=== PATIENT | male | born 1955 | race Caucasian/White ===

== ENCOUNTER 2020-05-15 21:45 | Emergency (ER) | payer MEDICARE ==
[~2020-05-15] VITALS: Ht 170.2 cm; Wt 81.7 kg
[~2020-05-15 21:45] MED LIST: AZIT250 PO
[2020-05-15 22:50] LABS: Source, Urine Clean Catch
[2020-05-15 23:00] LABS: Appearance, Urine Bloody (Clear); Bilirubin, Urine Neg (Neg); Blood, Urine 5+ (Neg); Color, Urine Red (P-Yellow); Glucose Qualitative, Urine Neg (Neg); Ketones, Urine 1+ (Neg); Leukocyte Esterase, Urine 2+ (Neg); Nitrite, Urine Neg (Neg); Protein, Urine 4+ (Neg); Specific Gravity, Urine 1.015 (1.003-1.022); Urobilinogen, Urine NORM (Normal)
[2020-05-15 23:01] LABS: Red Blood Cells, Urine TNTC /hpf (0-2); Squamous Epithelial Cells Not Seen /hpf (Few)
[2020-05-15 23:02] LABS: Bacteria Few /hpf
[2020-05-15 23:08] LABS: BASOPHILS ABSOLUTE AUTO 0.08 K/mm3 (0.00-0.23); BASOPHILS PERCENT AUTO 1 % (0-2); EOSINOPHILS ABSOLUTE AUTO 0.45 K/mm3 (0.00-0.68); EOSINOPHILS PERCENT AUTO 4 % (0-6); Hemoglobin 11.3 g/dL (13.5-17.5); IMMATURE GRAN ABSOLUTE AUTO 0.06 K/mm3 (0.00-0.10); IMMATURE GRAN PERCENT AUTO 1 % (0-1); LYMPHOCYTES ABSOLUTE AUTO 1.51 K/mm3 (0.84-5.20); LYMPHOCYTES PERCENT AUTO 12 % (21-46); MONOCYTES ABSOLUTE AUTO 1.02 K/mm3 (0.16-1.47); MONOCYTES PERCENT AUTO 8 % (4-13); Mean Corpuscular HGB 33.1 pg (26.0-34.0); Mean Corpuscular HGB Conc 33.2 g/dL (31.5-36.5); Mean Corpuscular Volume 100 fL (80-100); Mean Platelet Volume 9.1 fL (9.1-12.4); NEUTROPHILS ABSOLUTE AUTO 9.19 K/mm3 (1.96-9.15); NEUTROPHILS PERCENT AUTO 75 % (41-73); Platelet Count 247 K/mm3 (150-400); RDW Coefficient Variation 13.4 % (11.7-14.2); RDW Standard Deviation 49.1 fL (35.1-46.3); Red Blood Cell Count 3.41 M/mm3 (4.30-5.90); White Blood Cell Count 12.31 K/mm3 (4.00-11.30)
[2020-05-15 23:43] LABS: Alanine Aminotransfer (ALT/SGP 17 U/L (12-78); Albumin, Blood 3.1 g/dL (3.4-5.0); Albumin/Globulin Ratio 0.8 (0.8-1.8); Alk Phos 60 U/L (50-136); Anion Gap 4 mmol/L (6-16); Aspartate Aminotrans (AST/SGOT 15 U/L (12-37); Bilirubin, Total 0.3 mg/dL (0.1-1.0); Blood Urea Nitrogen 13 mg/dL (8-24); Bun/Creatinine Ratio 11.8 (12.0-20.0); CO2, Blood 30 mmol/L (21-32); Calcium, Blood 8.5 mg/dL (8.5-10.1); Chloride, Blood 105 mmol/L (98-108); Globulin, Blood 3.9 g/dL (2.2-4.0); Glomerular Filtration Rate >60 (60-); Glucose, Blood 105 mg/dL (70-99); Potassium, Blood 3.6 mmol/L (3.5-5.5); Sodium, Blood 139 mmol/L (136-145)
[2020-05-16] MEDS ORDERED: Bactrim Ds Tab1 EACH PO (02:52)
[2020-05-16 03:15] LABS: U Amphetamine Screen Not Detected; U Barbituate Screen Not Detected; U Benzodiazapine Screen Not Detected; U Buprenorphine Screen Not Detected; U Cannabinoids Screen Not Detected; U Cocaine Screen Not Detected; U Methadone Screen Not Detected; U Methamphetamine Screen Not Detected; U Opiates Screen Not Detected; U Oxycodone Screen Not Detected; U Phencyclidine Screen Not Detected; U Propoxyphene Screen Not Detected
== END 2020-05-16 03:42 | disposition home or self-care (01) ==
LOC: ER 21:45
PROVIDERS: Emergency Medicine; Student in an Organized Health Care Education/Training Program
DX: N39.0 Urinary tract infection, site not specified (principal); R31.9 Hematuria, unspecified; F17.200 Nicotine dependence, unspecified, uncomplicated; Z88.0 Allergy status to penicillin
CPT/HCPCS: 80053; 81001; 84443; 85025; 87086; 87147; 93005; 93010; 96374; 99283; A9270; J2060; J7120

== ENCOUNTER 2021-06-14 16:23 | Inpatient (IN) | payer MEDICARE ==
[~2021-06-14] VITALS: Ht 172.7 cm; Wt 71.2 kg
[~2021-06-14 16:23] MED LIST changes: +Bactrim Ds Tab1 EACH PO
[2021-06-14 17:28] LABS: BASOPHILS ABSOLUTE AUTO 0.06 K/mm3 (0.00-0.23); BASOPHILS PERCENT AUTO 1 % (0-2); EOSINOPHILS ABSOLUTE AUTO 0.15 K/mm3 (0.00-0.68); EOSINOPHILS PERCENT AUTO 2 % (0-6); Hematocrit 37.6 % (37.0-53.0); Hemoglobin 12.2 g/dL (13.5-17.5); IMMATURE GRAN ABSOLUTE AUTO 0.01 K/mm3 (0.00-0.10); IMMATURE GRAN PERCENT AUTO 0 % (0-1); LYMPHOCYTES ABSOLUTE AUTO 1.59 K/mm3 (0.84-5.20); LYMPHOCYTES PERCENT AUTO 21 % (21-46); MONOCYTES PERCENT AUTO 9 % (4-13); Mean Corpuscular HGB 30.4 pg (26.0-34.0); Mean Corpuscular HGB Conc 32.4 g/dL (31.5-36.5); Mean Corpuscular Volume 94 fL (80-100); Mean Platelet Volume 10.1 fL (9.1-12.4); NEUTROPHILS ABSOLUTE AUTO 5.13 K/mm3 (1.96-9.15); NEUTROPHILS PERCENT AUTO 67 % (41-73); Platelet Count 238 K/mm3 (150-400); RDW Coefficient Variation 16.7 % (11.7-14.2); RDW Standard Deviation 56.9 fL (35.1-46.3); Red Blood Cell Count 4.01 M/mm3 (4.30-5.90); White Blood Cell Count 7.64 K/mm3 (4.00-11.30)
[2021-06-14 17:45] LABS: Albumin, Blood 3.1 g/dL (3.4-5.0); Albumin/Globulin Ratio 0.7 (0.8-1.8); Bilirubin, Total 0.5 mg/dL (0.1-1.0); Bun/Creatinine Ratio 15.4 (12.0-20.0); Calcium, Blood 9.1 mg/dL (8.5-10.1); Creatinine, Blood 1.23 mg/dL (0.60-1.20); Globulin, Blood 4.5 g/dL (2.2-4.0); Potassium, Blood 4.1 mmol/L (3.5-5.5); Total Protein, Blood 7.6 g/dL (6.4-8.2)
[2021-06-14 18:21] LABS: Influenza A, PCR NEGATIVE (NEGATIVE); Influenza B, PCR NEGATIVE (NEGATIVE); Resp Syncytial Virus, PCR NEGATIVE (NEGATIVE); SARS-Cov-2 (COVID-19) PCR, MMC NEGATIVE (NEGATIVE)
[2021-06-14 23:20] LABS: Source, Urine Clean Catch
[2021-06-14 23:22] LABS: Bilirubin, Urine Neg (Neg); Blood, Urine 2+ (Neg); Glucose Qualitative, Urine Neg (Neg); Ketones, Urine Neg (Neg); Leukocyte Esterase, Urine 3+ (Neg); Nitrite, Urine Pos (Neg); Protein, Urine 1+ (Neg); Specific Gravity, Urine 1.015 (1.003-1.022); Urobilinogen, Urine NORM (Normal)
[2021-06-14 23:37] LABS: Appearance, Urine Hazy (Clear); Color, Urine Yellow (P-Yellow)
[2021-06-14 23:39] LABS: Bacteria Many /hpf; Squamous Epithelial Cells Rare /hpf (Few); White Blood Cells, Urine 25-50 /hpf (0-5)
[2021-06-14 23:59] LABS: U Amphetamine Screen DETECTED; U Barbituate Screen Not Detected; U Benzodiazapine Screen Not Detected; U Buprenorphine Screen Not Detected; U Cannabinoids Screen Not Detected; U Cocaine Screen Not Detected; U Methadone Screen Not Detected; U Methamphetamine Screen DETECTED; U Opiates Screen Not Detected; U Oxycodone Screen Not Detected; U Phencyclidine Screen Not Detected; U Propoxyphene Screen Not Detected
[2021-06-15 01:15] LABS: BASOPHILS ABSOLUTE AUTO 0.05 K/mm3 (0.00-0.23); BASOPHILS PERCENT AUTO 1 % (0-2); EOSINOPHILS ABSOLUTE AUTO 0.21 K/mm3 (0.00-0.68); EOSINOPHILS PERCENT AUTO 3 % (0-6); Hematocrit 35.8 % (37.0-53.0); Hemoglobin 11.8 g/dL (13.5-17.5); IMMATURE GRAN ABSOLUTE AUTO 0.01 K/mm3 (0.00-0.10); IMMATURE GRAN PERCENT AUTO 0 % (0-1); LYMPHOCYTES ABSOLUTE AUTO 1.47 K/mm3 (0.84-5.20); LYMPHOCYTES PERCENT AUTO 22 % (21-46); MONOCYTES ABSOLUTE AUTO 0.68 K/mm3 (0.16-1.47); MONOCYTES PERCENT AUTO 10 % (4-13); Mean Corpuscular HGB 30.7 pg (26.0-34.0); Mean Corpuscular Volume 93 fL (80-100); Mean Platelet Volume 9.4 fL (9.1-12.4); NEUTROPHILS ABSOLUTE AUTO 4.19 K/mm3 (1.96-9.15); NEUTROPHILS PERCENT AUTO 63 % (41-73); Platelet Count 209 K/mm3 (150-400); RDW Coefficient Variation 16.6 % (11.7-14.2); RDW Standard Deviation 56.9 fL (35.1-46.3); Red Blood Cell Count 3.84 M/mm3 (4.30-5.90); White Blood Cell Count 6.61 K/mm3 (4.00-11.30)
[2021-06-15 01:34] LABS: Albumin, Blood 2.8 g/dL (3.4-5.0); Albumin/Globulin Ratio 0.7 (0.8-1.8); Bilirubin, Total 0.7 mg/dL (0.1-1.0); Bun/Creatinine Ratio 14.6 (12.0-20.0); Calcium, Blood 8.8 mg/dL (8.5-10.1); Creatinine, Blood 1.44 mg/dL (0.60-1.20); Globulin, Blood 4.3 g/dL (2.2-4.0); Potassium, Blood 3.7 mmol/L (3.5-5.5); Total Protein, Blood 7.1 g/dL (6.4-8.2)
--- NOTE | 2021-06-15 03:42 | NUR ---
0010: PT ARRIVED FROM ED. TRANSFERED TO ROOM 312 VIA W/C. AOX4. AMBULATES IND IN THE ROOM. ADVISE TO CALL FOR SBA TO DECREASE FALL RISK BECAUSE PT RECIEVED LASIX AT THE ER. URINAL AT BEDSIDE. VSS. REPORTS MILD SOB. PT DOES NOT APPEAR DISTRESS. TELE IN PLACE ON SINUS TACH 100. DENIES CHEST PAIN, NUMBNESS AND TINGLING SENSATION. REORIENT PT IN ROOM. CALL LIGHT WITHIN REACH.
--- NOTE | 2021-06-15 03:51 | NUR ---
0040: LUZ RN FROM ER CALLED STATING THAT CT CHEST WAS NEGATIVE BUT THE BLADDER APPEARS TO BE DISTENDED PER ER DOCTOR. ADVISE TO DO BLADDER SCAN TO EVAL PT. BLADDER SCANNED PT, 999ML. PT VOIDING IN THE URINAL WILL CONTINUE TO MONITOR. PT DENIES PAIN/ DISCOMFORT IN HIS BLADDER AT THIS TIME.
--- NOTE | 2021-06-15 03:54 | NUR ---
SHIFT SUMMARY NO ACUTE CHANGES SINCE PT CAME IN TO UNIT. PT HAS BEEN SLEEPING AND RESTING COMFORTABLE IN BED. DENIES CHEST PAIN AND REPORTS VERY MILD SOB. TELE IN PLACE: PT ON NSR. VSS. 1SBA FOR SAFETY. URINAL AT BEDSIDE. LOVENOX ADMINISTERED. CALL LIGHT WITHIN REACH. WILL CONTINUE TO MONITOR PT. AND WILL PROVIDE REPORT TO ONCOMING NURSE.
--- NOTE | 2021-06-15 12:29 | NUR ---
Echocardiogram using 0.50ml of Definity contrast performed.
--- NOTE | 2021-06-15 16:31 | NUR ---
SHIFT SUMMARY PATIENT DENIES PAIN, NAUSEA, AND SHORTNESS OF BREATH. PATIENT IS IND IN ROOM. PATIENT IS VOIDING LARGE AMOUNTS OF URINE. WE ARE DIURESSING PATIENT. POST VOID BLADDER SCAN SHOWED 2800. PATIENT ABDOMEN DISTENDED. PATIENT HAS HX OF ETOH. DR. WEEMS NOTIFIED. NO NEW ORDERS. PATIENT URINE CULTURE CAME BACK POSITIVE FOR STREP B. DR. WEEMS NOTIFIED. NO NEW ORDERS. PATIENT IS EATING AND DRINKING WELL. ECHO DONE, PENDING RESULTS. VULCANIZER MET WITH PATIENT TO EDUCATE PATIENT ABOUT CHANGE IN DIET DUE TO NEW DIAGNOSIS. PATIENT IS PLEASANT AND COOPERATIVE WITH CARE.
[2021-06-16 00:07] LABS: Source, Urine Foley catheter
[2021-06-16 00:23] LABS: Bilirubin, Urine Neg (Neg); Blood, Urine Neg (Neg); Glucose Qualitative, Urine Neg (Neg); Ketones, Urine Neg (Neg); Leukocyte Esterase, Urine Neg (Neg); Nitrite, Urine Neg (Neg); Protein, Urine Neg (Neg); Specific Gravity, Urine 1.005 (1.003-1.022); Urobilinogen, Urine NORM (Normal)
[2021-06-16 00:27] LABS: Appearance, Urine Clear (Clear); Color, Urine No Color (P-Yellow)
--- NOTE | 2021-06-16 04:17 | NUR ---
SHIFT SUMMARY ADMITTED FOR CHF (NEW DX). FULL CODE. PLAN IS TO DC HOME WHEN STABLE FOR DC. WE ARE DIURESING HIM. QUIROS CATHETER NOW IN PLACE FOR RETENTION. Q4 CIWAS ARE SO FAR ZERO SCORE. ON PO ANTIB RX FOR STREP B IN URINE. TELEMETRY: TACHY @ 115 BPM.
[2021-06-16 04:48] LABS: BASOPHILS ABSOLUTE AUTO 0.05 K/mm3 (0.00-0.23); BASOPHILS PERCENT AUTO 1 % (0-2); EOSINOPHILS ABSOLUTE AUTO 0.53 K/mm3 (0.00-0.68); EOSINOPHILS PERCENT AUTO 6 % (0-6); Hematocrit 40.8 % (37.0-53.0); Hemoglobin 13.6 g/dL (13.5-17.5); IMMATURE GRAN ABSOLUTE AUTO 0.02 K/mm3 (0.00-0.10); IMMATURE GRAN PERCENT AUTO 0 % (0-1); LYMPHOCYTES ABSOLUTE AUTO 1.69 K/mm3 (0.84-5.20); LYMPHOCYTES PERCENT AUTO 20 % (21-46); MONOCYTES ABSOLUTE AUTO 0.74 K/mm3 (0.16-1.47); MONOCYTES PERCENT AUTO 9 % (4-13); Mean Corpuscular HGB 30.6 pg (26.0-34.0); Mean Corpuscular HGB Conc 33.3 g/dL (31.5-36.5); Mean Corpuscular Volume 92 fL (80-100); Mean Platelet Volume 9.6 fL (9.1-12.4); NEUTROPHILS ABSOLUTE AUTO 5.49 K/mm3 (1.96-9.15); NEUTROPHILS PERCENT AUTO 65 % (41-73); Platelet Count 248 K/mm3 (150-400); RDW Coefficient Variation 16.5 % (11.7-14.2); RDW Standard Deviation 55.9 fL (35.1-46.3); Red Blood Cell Count 4.45 M/mm3 (4.30-5.90); White Blood Cell Count 8.52 K/mm3 (4.00-11.30)
[2021-06-16 05:31] LABS: Albumin, Blood 2.8 g/dL (3.4-5.0); Anion Gap 6 mmol/L (6-16); Blood Urea Nitrogen 30 mg/dL (8-24); Bun/Creatinine Ratio 18.6 (12.0-20.0); CO2, Blood 32 mmol/L (21-32); Chloride, Blood 101 mmol/L (98-108); Creatinine, Blood 1.61 mg/dL (0.60-1.20); Glomerular Filtration Rate 43 (60-); Glucose, Blood 105 mg/dL (70-99); Phosphorus, Blood 3.8 mg/dL (2.5-4.9); Potassium, Blood 3.7 mmol/L (3.5-5.5); Sodium, Blood 139 mmol/L (136-145)
[2021-06-16] MEDS ORDERED: ASPI81CH PO (16:05)
[2021-06-16] MEDS ORDERED: CIPR250 PO (16:06)
[2021-06-16] MEDS ORDERED: METO25ER PO (16:06)
[2021-06-16] MEDS ORDERED: Hair, Skin & N1 EACH PO (16:06)
[2021-06-16] MEDS ORDERED: TAMS.4ER PO (16:07)
[2021-06-16] MEDS ORDERED: FURO40 PO (16:07)
--- NOTE | 2021-06-16 19:26 | NUR ---
DISCHARGE SUMMARY: LATE ENTRY: 1645 PATIENT DENIED PAIN OR DISCOMFORT THROUGHOUT THE SHIFT. FOUND THAT THE QUIROS CATHETER WAS NOT IN PLACE THIS MORNING. PATIENT ABLE TO VOID SMALL AMOUNTS DURING THE MORNING. PATIENT REFUSED PLACEMENT OF QUIROS, LEARNING ABOUT STRAIGHT CATHING OR TO HAVE A ONE TIME STRAIGHT CATH PLACED. DR. GUAJARDO AWARE. DR. PANG ROUNDED ON PATIENT. ORDERS TO HAVE THE PATIENT FOLLOW-UP WITH CARDIOLOGY. PATIENT INDEPENDENT IN THE ROOM AND STEADY ON HIS FEET. DISCHARGE INSTRUCTIONS AND EDUCATION PROVIDED TO THE PATIENT. EMPHASIS PLACED ON LIFE STYLE CHANGES AND ADHERENCE TO MEDICATIONS. PATIENT VERBALIZED UNDERSTANDING. PROVIDED WITH COMMUNITY RESOURCES AND LIST OF PROVIDERS. PATIENT WALKED OUT OF THE HOSPITAL WITH RN (REFUSED WHEELCHAIR). PATIENT STABLE AT TIME OF DISCHARGE.
== END 2021-06-16 16:58 | disposition home or self-care (01) | DRG 291 ==
LOC: ER 16:23 → MEDS 22:14
PROVIDERS: Internal Medicine; Physician Assistant; ADMIT Internal Medicine
DX: I11.0 Hypertensive heart disease with heart failure (principal); I50.21 Acute systolic (congestive) heart failure; N17.9 Acute kidney failure, unspecified; Z88.0 Allergy status to penicillin; Z20.822 Contact with and (suspected) exposure to COVID-19; F17.200 Nicotine dependence, unspecified, uncomplicated; F10.20 Alcohol dependence, uncomplicated; N30.90 Cystitis, unspecified without hematuria; Z91.14 Patient's other noncompliance with medication regimen
CPT/HCPCS: 0241U; 36415; 71045; 71260; 76770; 80053; 80069; 81001; 81003; 82550; 83880; 84484; 85025; 87086; 87147; 93005; 93010; 96374; 99285-25; A9270; C8929; J1650; J1940; Q9957; Q9967

== ENCOUNTER 2021-09-03 17:38 | Inpatient (IN) | payer MEDICARE ==
[~2021-09-03] VITALS: Ht 170.2 cm; Wt 75.5 kg
[~2021-09-03 17:38] MED LIST changes: +ASPI81CH PO; +CIPR250 PO; +FURO40 PO; +Hair, Skin & N1 EACH PO; +METO25ER PO; +TAMS.4ER PO
[2021-09-03 18:05] LABS: BASOPHILS ABSOLUTE AUTO 0.05 K/mm3 (0.00-0.23); BASOPHILS PERCENT AUTO 0 % (0-2); EOSINOPHILS ABSOLUTE AUTO 0.01 K/mm3 (0.00-0.68); EOSINOPHILS PERCENT AUTO 0 % (0-6); Hematocrit 36.8 % (37.0-53.0); Hemoglobin 11.9 g/dL (13.5-17.5); IMMATURE GRAN ABSOLUTE AUTO 0.17 K/mm3 (0.00-0.10); IMMATURE GRAN PERCENT AUTO 1 % (0-1); LYMPHOCYTES ABSOLUTE AUTO 0.54 K/mm3 (0.84-5.20); LYMPHOCYTES PERCENT AUTO 3 % (21-46); MONOCYTES ABSOLUTE AUTO 1.24 K/mm3 (0.16-1.47); MONOCYTES PERCENT AUTO 6 % (4-13); Mean Corpuscular HGB 29.5 pg (26.0-34.0); Mean Corpuscular HGB Conc 32.3 g/dL (31.5-36.5); Mean Corpuscular Volume 91 fL (80-100); Mean Platelet Volume 9.9 fL (9.1-12.4); NEUTROPHILS ABSOLUTE AUTO 19.04 K/mm3 (1.96-9.15); NEUTROPHILS PERCENT AUTO 91 % (41-73); Platelet Count 201 K/mm3 (150-400); RDW Coefficient Variation 15.8 % (11.7-14.2); Red Blood Cell Count 4.04 M/mm3 (4.30-5.90); White Blood Cell Count 21.05 K/mm3 (4.00-11.30)
[2021-09-03 18:16] LABS: Source, Urine Clean Catch
[2021-09-03 18:26] LABS: Appearance, Urine Hazy (Clear); Bilirubin, Urine Neg (Neg); Blood, Urine 2+ (Neg); Color, Urine Yellow (P-Yellow); Glucose Qualitative, Urine Neg (Neg); Ketones, Urine Neg (Neg); Leukocyte Esterase, Urine 3+ (Neg); Nitrite, Urine Neg (Neg); Protein, Urine 2+ (Neg); Urobilinogen, Urine NORM (Normal)
[2021-09-03 18:37] LABS: Granular Casts 0-2 /lpf (0)
[2021-09-03 18:38] LABS: Bacteria Many /hpf; Red Blood Cells, Urine 0-2 /hpf (0-2); Squamous Epithelial Cells Rare /hpf (Few)
[2021-09-03 18:43] LABS: U Amphetamine Screen DETECTED; U Barbituate Screen Not Detected; U Benzodiazapine Screen Not Detected; U Buprenorphine Screen Not Detected; U Cannabinoids Screen Not Detected; U Cocaine Screen Not Detected; U Methadone Screen Not Detected; U Methamphetamine Screen DETECTED; U Opiates Screen Not Detected; U Oxycodone Screen Not Detected; U Phencyclidine Screen Not Detected; U Propoxyphene Screen Not Detected
[2021-09-03 18:57] LABS: Albumin, Blood 2.7 g/dL (3.4-5.0); Albumin/Globulin Ratio 0.6 (0.8-1.8); Bilirubin, Total 1.5 mg/dL (0.1-1.0); Calcium, Blood 8.6 mg/dL (8.5-10.1); Creatinine, Blood 1.25 mg/dL (0.60-1.20); Globulin, Blood 4.3 g/dL (2.2-4.0); Potassium, Blood 4.1 mmol/L (3.5-5.5)
[2021-09-04 05:36] LABS: Hematocrit 34.5 % (37.0-53.0); Hemoglobin 10.8 g/dL (13.5-17.5); Mean Corpuscular HGB 29.3 pg (26.0-34.0); Mean Corpuscular HGB Conc 31.3 g/dL (31.5-36.5); Mean Corpuscular Volume 94 fL (80-100); Mean Platelet Volume 9.9 fL (9.1-12.4); Platelet Count 169 K/mm3 (150-400); RDW Coefficient Variation 15.9 % (11.7-14.2); RDW Standard Deviation 54.2 fL (35.1-46.3); Red Blood Cell Count 3.69 M/mm3 (4.30-5.90); White Blood Cell Count 15.41 K/mm3 (4.00-11.30)
--- NOTE | 2021-09-04 05:45 | NUR ---
PATIENT REMAINED IN BED OVERNIGHT. INDEPENDENT IN ROOM TO BATHROOM. NO COMPLAINTS OF PAIN OR DISCOMFORT. OOB TO VOID IN THE BATHROOM. ATE GOOD LATE DINNER UPON ARRIVING ON THE FLOOR.
[2021-09-04 06:15] LABS: Bun/Creatinine Ratio 19.5 (12.0-20.0); Calcium, Blood 8.2 mg/dL (8.5-10.1); Creatinine, Blood 1.33 mg/dL (0.60-1.20); Magnesium, Blood 1.8 mg/dL (1.6-2.4); Potassium, Blood 3.9 mmol/L (3.5-5.5)
--- NOTE | 2021-09-04 12:04 | NUR ---
veterinary technology instructor called and stated patient had 6 second run of v tack. Checked on patietn- alert, orientated, denies chest pain, denies SOB. states " feel fine". call light in reach, tele in place, room door open.
--- NOTE | 2021-09-04 17:38 | NUR ---
PATIENT IS REPORTING NO CONCERNS- BREATHING IS BETTER AND HE STATES HE FEELS BACK TO NORMAL. HE HAS NO PAIN. THE DIUREICS HE TOOK THIS SHIFT ARE WORKING WELL AND HE IS USING THE BATHROM INDEPEDETLY. PATIENT HAD URINAL AT BEDSIDE AND HAT IN TOILET NOW FOR I&O.
--- NOTE | 2021-09-04 22:33 | NUR ---
RN TO RN PATIENT TRANSFER. REPORT TAKEN FROM OLGA STEELE.
--- NOTE | 2021-09-05 04:29 | NUR ---
SHIFT SUMMARY PATIENT HAD NO ACUTE CHANGES OBSERVED. AXOX 3 AND INDEPENDENT IN THE ROOM. PIV REMAINS INTACT. VSS/AFEBRILE. DENIES PAIN, SOB, AND N/V. USES URINAL AT BEDSIDE. TELE MONITOR ST 110. CALL LIGHT IN REACH. BED IN LOWEST POSITION. WILL CONTINUE TO MONITOR UNTIL DAY SHIFT NURSE ASSUMES CARE.
[2021-09-05 05:29] LABS: BASOPHILS ABSOLUTE AUTO 0.07 K/mm3 (0.00-0.23); BASOPHILS PERCENT AUTO 1 % (0-2); EOSINOPHILS ABSOLUTE AUTO 0.43 K/mm3 (0.00-0.68); EOSINOPHILS PERCENT AUTO 5 % (0-6); Hematocrit 35.6 % (37.0-53.0); Hemoglobin 11.3 g/dL (13.5-17.5); IMMATURE GRAN ABSOLUTE AUTO 0.02 K/mm3 (0.00-0.10); IMMATURE GRAN PERCENT AUTO 0 % (0-1); LYMPHOCYTES ABSOLUTE AUTO 2.04 K/mm3 (0.84-5.20); LYMPHOCYTES PERCENT AUTO 22 % (21-46); MONOCYTES ABSOLUTE AUTO 0.88 K/mm3 (0.16-1.47); MONOCYTES PERCENT AUTO 10 % (4-13); Mean Corpuscular HGB 29.6 pg (26.0-34.0); Mean Corpuscular HGB Conc 31.7 g/dL (31.5-36.5); Mean Corpuscular Volume 93 fL (80-100); Mean Platelet Volume 9.8 fL (9.1-12.4); NEUTROPHILS ABSOLUTE AUTO 5.82 K/mm3 (1.96-9.15); NEUTROPHILS PERCENT AUTO 63 % (41-73); Platelet Count 178 K/mm3 (150-400); RDW Coefficient Variation 15.8 % (11.7-14.2); Red Blood Cell Count 3.82 M/mm3 (4.30-5.90); White Blood Cell Count 9.26 K/mm3 (4.00-11.30)
[2021-09-05 07:20] LABS: Albumin, Blood 2.2 g/dL (3.4-5.0); Anion Gap 8 mmol/L (6-16); Blood Urea Nitrogen 31 mg/dL (8-24); Bun/Creatinine Ratio 20.7 (12.0-20.0); CO2, Blood 25 mmol/L (21-32); Calcium, Blood 8.3 mg/dL (8.5-10.1); Chloride, Blood 108 mmol/L (98-108); Glomerular Filtration Rate 50 (60-); Glucose, Blood 103 mg/dL (70-99); Phosphorus, Blood 3.6 mg/dL (2.5-4.9); Potassium, Blood 3.9 mmol/L (3.5-5.5); Sodium, Blood 141 mmol/L (136-145)
[2021-09-05] MEDS ORDERED: ALDACTONE25 MG PO (13:08)
[2021-09-05] MEDS ORDERED: METO25ER PO (13:08)
[2021-09-05] MEDS ORDERED: FURO40 PO (13:09)
[2021-09-05] MEDS ORDERED: TAMS.4ER PO (13:09)
[2021-09-05] MEDS ORDERED: B-1100 M1 PO (13:09)
--- NOTE | 2021-09-05 14:29 | NUR ---
DISCHARGE SUMMARY PT DC AT APPROX 1350 TO HOME WITH FAMILY MEMBER. PT AxOx4. PLEASANT AND COOPERATIVE WITH CARE. PT GIVEN DC INSTRUCTIONS INCLUDING FOLLOW UP INSTRUCTIONS TO ESTABLISH CARE WITH NEW PCP, DC MEDICATION LIST, AND PATIENT EDUCATION. PT VERBALIZES UNDERSTANDING. DENIES ANY FURTHER QUESTIONS. PT SAFELY ESCORTED OUT WITH FAMILY AND LEASING SPECIALIST.
== END 2021-09-05 14:44 | disposition home or self-care (01) | DRG 871 ==
LOC: ER 17:38 → MEDS 21:09
PROVIDERS: Internal Medicine; Physician Assistant; ADMIT Internal Medicine
PROC: 3E03329 Introduction of Other Anti-infective into Peripheral Vein, Percutaneous Approach (ICD-10-PCS; principal; 2021-09-03)
PROC: HZ2ZZZZ Detoxification Services for Substance Abuse Treatment (ICD-10-PCS; 2021-09-03)
DX: A41.9 Sepsis, unspecified organism (principal); I50.23 Acute on chronic systolic (congestive) heart failure; I13.0 Hypertensive heart and chronic kidney disease with heart failure and stage 1 through stage 4 chronic kidney disease, or unspecified chronic kidney disease; E87.2 Acidosis; N17.9 Acute kidney failure, unspecified; N39.0 Urinary tract infection, site not specified; I42.0 Dilated cardiomyopathy; I42.7 Cardiomyopathy due to drug and external agent; I42.6 Alcoholic cardiomyopathy; R65.20 Severe sepsis without septic shock; N40.0 Benign prostatic hyperplasia without lower urinary tract symptoms; N18.30 Chronic kidney disease, stage 3 unspecified; F15.10 Other stimulant abuse, uncomplicated; F17.210 Nicotine dependence, cigarettes, uncomplicated; F10.20 Alcohol dependence, uncomplicated; Z71.41 Alcohol abuse counseling and surveillance of alcoholic; Z71.51 Drug abuse counseling and surveillance of drug abuser; Z88.0 Allergy status to penicillin; Z79.82 Long term (current) use of aspirin; Z79.899 Other long term (current) drug therapy
CPT/HCPCS: 36415; 71046; 80048; 80053; 80069; 81001; 83605; 83690; 83735; 83880; 84484; 85025; 85027; 87040; 87086; 93005; 93010; 96374; 99285-25; A9270; J0696; J1940; J7030

== ENCOUNTER 2022-01-17 14:13 | Inpatient (IN) | payer MEDICARE ==
[~2022-01-17] VITALS: Ht 167.6 cm; Wt 65.0 kg
[~2022-01-17 14:13] MED LIST changes: +ALDACTONE25 MG PO; +B-1100 M1 PO
[2022-01-17 15:27] LABS: BASOPHILS ABSOLUTE AUTO 0.01 K/mm3 (0.00-0.23); BASOPHILS PERCENT AUTO 0 % (0-2); EOSINOPHILS ABSOLUTE AUTO 0.03 K/mm3 (0.00-0.68); EOSINOPHILS PERCENT AUTO 0 % (0-6); Hematocrit 36.6 % (37.0-53.0); IMMATURE GRAN ABSOLUTE AUTO 0.05 K/mm3 (0.00-0.10); IMMATURE GRAN PERCENT AUTO 0 % (0-1); LYMPHOCYTES ABSOLUTE AUTO 0.72 K/mm3 (0.84-5.20); LYMPHOCYTES PERCENT AUTO 6 % (21-46); MONOCYTES PERCENT AUTO 5 % (4-13); Mean Corpuscular HGB 28.2 pg (26.0-34.0); Mean Corpuscular HGB Conc 32.8 g/dL (31.5-36.5); Mean Corpuscular Volume 86 fL (80-100); Mean Platelet Volume 9.7 fL (9.1-12.4); NEUTROPHILS PERCENT AUTO 88 % (41-73); NRBC ABSOLUTE 0.02 K/mm3 (0.00-0.02); NRBC Auto 0.2 /100 WBC (0.0-0.2); Platelet Count 149 K/mm3 (150-400); RDW Coefficient Variation 18.6 % (11.7-14.2); RDW Standard Deviation 55.7 fL (35.1-46.3); Red Blood Cell Count 4.25 M/mm3 (4.30-5.90); White Blood Cell Count 12.11 K/mm3 (4.00-11.30)
[2022-01-17 15:48] LABS: Albumin, Blood 2.1 g/dL (3.4-5.0); Albumin/Globulin Ratio 0.5 (0.8-1.8); Bilirubin, Total 0.9 mg/dL (0.1-1.0); Bun/Creatinine Ratio 22.1 (12.0-20.0); Calcium, Blood 8.1 mg/dL (8.5-10.1); Creatinine, Blood 4.93 mg/dL (0.60-1.20); Globulin, Blood 4.5 g/dL (2.2-4.0); Potassium, Blood 3.9 mmol/L (3.5-5.5); Total Protein, Blood 6.6 g/dL (6.4-8.2)
[2022-01-17 17:39] LABS: International Normalized Ratio 1.28; Prothrombin Time Results 13.2 Sec (9.7-11.5)
[2022-01-17 17:51] LABS: Source, Urine Clean Catch
[2022-01-17 17:54] LABS: Appearance, Urine Cloudy (Clear); Bilirubin, Urine Neg (Neg); Blood, Urine 5+ (Neg); Color, Urine Yellow (P-Yellow); Glucose Qualitative, Urine Neg (Neg); Ketones, Urine Neg (Neg); Leukocyte Esterase, Urine 3+ (Neg); Nitrite, Urine Pos (Neg); Protein, Urine 2+ (Neg); Urobilinogen, Urine NORM (Normal)
[2022-01-17 18:07] LABS: Bacteria Many /hpf; Squamous Epithelial Cells Few /hpf (Few); White Blood Cells, Urine 50-100 /hpf (0-5)
[2022-01-17 18:08] LABS: Renal Epithelial Few /hpf (0-Rare); Transitional Epithelial Cells Rare /hpf (0-Rare)
[2022-01-17 20:07] LABS: U Amphetamine Screen DETECTED; U Barbituate Screen Not Detected; U Benzodiazapine Screen Not Detected; U Buprenorphine Screen Not Detected; U Cannabinoids Screen Not Detected; U Cocaine Screen Not Detected; U Methadone Screen Not Detected; U Methamphetamine Screen DETECTED; U Opiates Screen Not Detected; U Oxycodone Screen Not Detected; U Phencyclidine Screen Not Detected; U Propoxyphene Screen Not Detected
--- NOTE | 2022-01-17 20:42 | NUR ---
ADMIT NOTE 66 YR OLD MALE ADMITTED TO FLOOR FROM THE ED WITH DX OF CHF AND RENAL FAILURE/ANJEL. ED RN REPORTED PT CAME IN WITH FLUID OVERLOAD, SCROTAL SWELLING, AND PLACED A QUIROS CATH. 2600 CC RETURNS. UP TO FLOOR. RADIOLOGY MEETS PT IN ROOM FOR SCAN OF UBIC AREA AND "KIDNEYS". ALERT AND ORIENTED. VOICED DIFFICULTY TO REPOSITION SELF. CALL LIGHT IN REACH.
--- NOTE | 2022-01-17 22:52 | NUR ---
DRYING MACHINE OPERATOR PACKAGE YARNS VOICED NO NOTED CHANGES SINCE PREVIOUS SCANS. SEE CHART HX FOR DETAILS
--- NOTE | 2022-01-18 04:10 | NUR ---
SEWING MACHINE OPERATOR SEMIAUTOMATIC SUMMARY ADMITTED TO FLOOR EARLIER IN THE SHIFT WITH FLUID OVERLOAD DUE TO CHF, ANJEL AND APPARENT KIDNEY FAILURE. SWELLING IN SCROTUM AND BLE, QUIROS WAS PLACED IN THE ED, AND ED RN REPORTED 2600 ML IMMEDIATELY DRAINED. HAS BEEN DROWSY AND SNORING THROUGH OUT SHIFT, DIFFICULT TO KEEP AWAKE TO OBTAIN ADMIT INFO FOR ADMISSION. (WILL ASK AM RN TO F/U WITH INFO NOT OBTAINED ON THIS SHIFT). RECEIVED ALBUMIN ON ARRIVAL AND IVF OF NS AT 75 ML/HR. MED TELE S TACH. LUNGS SOMEWHAT DIMINISHED. RADIOLOGY SCANS OF SCROTUM AND KIDNEYS DONE. EQUITY RESEARCH ASSOCIATE VOICED NO NOTED CHANGES COMPARED TO THOSE OF PREVIOUS SCANS. ORIENTED TO USE OF CALL LIGHT. CALL LIGHT IN REACH. RAILS UP X 3. WILL CONTINUE TO MONITOR
[2022-01-18 06:22] LABS: BASOPHILS ABSOLUTE AUTO 0.01 K/mm3 (0.00-0.23); BASOPHILS PERCENT AUTO 0 % (0-2); EOSINOPHILS ABSOLUTE AUTO 0.08 K/mm3 (0.00-0.68); EOSINOPHILS PERCENT AUTO 1 % (0-6); Hematocrit 35.8 % (37.0-53.0); Hemoglobin 11.4 g/dL (13.5-17.5); IMMATURE GRAN ABSOLUTE AUTO 0.04 K/mm3 (0.00-0.10); IMMATURE GRAN PERCENT AUTO 0 % (0-1); LYMPHOCYTES PERCENT AUTO 8 % (21-46); MONOCYTES ABSOLUTE AUTO 0.56 K/mm3 (0.16-1.47); MONOCYTES PERCENT AUTO 6 % (4-13); Mean Corpuscular HGB 27.6 pg (26.0-34.0); Mean Corpuscular HGB Conc 31.8 g/dL (31.5-36.5); Mean Corpuscular Volume 87 fL (80-100); Mean Platelet Volume 10.4 fL (9.1-12.4); NEUTROPHILS ABSOLUTE AUTO 8.38 K/mm3 (1.96-9.15); NEUTROPHILS PERCENT AUTO 85 % (41-73); Platelet Count 144 K/mm3 (150-400); RDW Coefficient Variation 18.7 % (11.7-14.2); RDW Standard Deviation 56.5 fL (35.1-46.3); Red Blood Cell Count 4.13 M/mm3 (4.30-5.90); White Blood Cell Count 9.87 K/mm3 (4.00-11.30)
[2022-01-18 06:42] LABS: Albumin, Blood 2.1 g/dL (3.4-5.0); Albumin/Globulin Ratio 0.5 (0.8-1.8); Bilirubin, Total 0.9 mg/dL (0.1-1.0); Bun/Creatinine Ratio 23.2 (12.0-20.0); Calcium, Blood 8.4 mg/dL (8.5-10.1); Creatinine, Blood 4.65 mg/dL (0.60-1.20); Globulin, Blood 3.9 g/dL (2.2-4.0); Potassium, Blood 3.6 mmol/L (3.5-5.5)
--- NOTE | 2022-01-18 18:16 | NUR ---
SHIFT SUMMARY PT A&O X 4. VSS. SHAREPOINT APPLICATION ARCHITECT CALLED WITH A FEW EPISODES OF ST WITH RATE IN THE 190's-200's THAT LASTED FOR 1-2 SECS. 1 EPISODE OF AN 8 BEAT RUN OF V-TACH. PT DENIES CHEST PAIN, LIGHTHEADEDNESS, DIZZINESS, SOB OR NAUSEA. PT DENIES FEELING ANYTHING DIFFERENT OR FEELING BAD AT ALL. PT HAS SLEPT COMFORTABLY OFF AND ON THROUGHOUT SHIFT, RESP EVEN & UNLABORED. SCROTAL EDEMA REMAINS. F/C INTACT & PATENT, DRAINING CLEAR YELLOW URINE. ORDERED LASIX 60 MG IV BID, IT'S WORKING WELL. IS PLEASANT & COOPERATIVE WITH ALL CARE.
--- NOTE | 2022-01-19 03:12 | NUR ---
RESIN FILTERER SUMMARY CONTINUES TO APPEAR TO SLEEP CONTINUOUSLY, WAKING UP FOR ASSESSMENTS AND GOING BACK TO SLEEP QUICKLY. SCROTAL SWELLING REMAINS, DIURESING CONTINUES, RECEIVED 6 MG LASIX IV AT HS, OUTPUT IN QUIROS WAS OVER 2700 CC'S. LIGHT YELLOW AND CLEAR. MED TELE CONTINUES, OCCASIONAL RUN OF V TACH BUT ASYMPTOMATIC. CALL LIGHT IN REACH. WILL CONTINUE TO MONITOR.
[2022-01-19 06:00] LABS: BASOPHILS ABSOLUTE AUTO 0.02 K/mm3 (0.00-0.23); BASOPHILS PERCENT AUTO 0 % (0-2); EOSINOPHILS ABSOLUTE AUTO 0.04 K/mm3 (0.00-0.68); EOSINOPHILS PERCENT AUTO 0 % (0-6); Hematocrit 41.3 % (37.0-53.0); IMMATURE GRAN ABSOLUTE AUTO 0.05 K/mm3 (0.00-0.10); IMMATURE GRAN PERCENT AUTO 0 % (0-1); LYMPHOCYTES ABSOLUTE AUTO 0.72 K/mm3 (0.84-5.20); LYMPHOCYTES PERCENT AUTO 6 % (21-46); MONOCYTES ABSOLUTE AUTO 0.72 K/mm3 (0.16-1.47); MONOCYTES PERCENT AUTO 6 % (4-13); Mean Corpuscular HGB 27.3 pg (26.0-34.0); Mean Corpuscular HGB Conc 31.5 g/dL (31.5-36.5); Mean Corpuscular Volume 87 fL (80-100); Mean Platelet Volume 9.9 fL (9.1-12.4); NEUTROPHILS ABSOLUTE AUTO 10.36 K/mm3 (1.96-9.15); NEUTROPHILS PERCENT AUTO 87 % (41-73); Platelet Count 166 K/mm3 (150-400); RDW Coefficient Variation 19.2 % (11.7-14.2); RDW Standard Deviation 56.1 fL (35.1-46.3); Red Blood Cell Count 4.77 M/mm3 (4.30-5.90); White Blood Cell Count 11.91 K/mm3 (4.00-11.30)
[2022-01-19 06:25] LABS: Albumin, Blood 2.2 g/dL (3.4-5.0); Albumin/Globulin Ratio 0.5 (0.8-1.8); Bilirubin, Total 1.2 mg/dL (0.1-1.0); Bun/Creatinine Ratio 23.7 (12.0-20.0); Calcium, Blood 7.9 mg/dL (8.5-10.1); Creatinine, Blood 4.55 mg/dL (0.60-1.20); Globulin, Blood 4.3 g/dL (2.2-4.0); Potassium, Blood 3.7 mmol/L (3.5-5.5); Total Protein, Blood 6.5 g/dL (6.4-8.2)
[2022-01-19 14:09] LABS: Bun/Creatinine Ratio 24.3 (12.0-20.0); Calcium, Blood 7.6 mg/dL (8.5-10.1); Creatinine, Blood 4.32 mg/dL (0.60-1.20); Potassium, Blood 3.5 mmol/L (3.5-5.5)
--- NOTE | 2022-01-19 19:42 | NUR ---
SHIFT SUMMARY PTN WITH CHF, ANJEL, PLEURAL EFFUSION, FLUID OVERLOAD, INCLUDING EXTENSIVE SCROTAL SWELLING. QUIROS PLACED IN ER FOR URINARY RETENTION. URINE CLEAR YELLOW IN QUIROS BAG, GRAVITY DRAIN. C/O L SHOULDER DISCOMFORT. TYLENOL AND WARM BLANKET GIVEN WITH GOOD RESULT. PTN DID HAVE REPORTED VTACH LONG RUNS LAST SHIFT AND AGAIN THIS SHIFT VTACH 5-RUN REPORTED, RESOLVED EACH EPISODE. DR JAY MADE AWARE. PTN HAD NO UNTOWARD SYMPTOMS DURING THESE EPISODES. CONTINUE TO MONITOR.
[2022-01-20 05:59] LABS: BASOPHILS ABSOLUTE AUTO 0.03 K/mm3 (0.00-0.23); BASOPHILS PERCENT AUTO 0 % (0-2); EOSINOPHILS PERCENT AUTO 1 % (0-6); Hematocrit 39.4 % (37.0-53.0); Hemoglobin 12.8 g/dL (13.5-17.5); IMMATURE GRAN ABSOLUTE AUTO 0.05 K/mm3 (0.00-0.10); IMMATURE GRAN PERCENT AUTO 0 % (0-1); LYMPHOCYTES ABSOLUTE AUTO 0.78 K/mm3 (0.84-5.20); LYMPHOCYTES PERCENT AUTO 7 % (21-46); MONOCYTES ABSOLUTE AUTO 0.88 K/mm3 (0.16-1.47); MONOCYTES PERCENT AUTO 8 % (4-13); Mean Corpuscular HGB 27.7 pg (26.0-34.0); Mean Corpuscular HGB Conc 32.5 g/dL (31.5-36.5); Mean Corpuscular Volume 85 fL (80-100); NEUTROPHILS ABSOLUTE AUTO 9.74 K/mm3 (1.96-9.15); NEUTROPHILS PERCENT AUTO 84 % (41-73); Platelet Count 175 K/mm3 (150-400); RDW Coefficient Variation 19.1 % (11.7-14.2); RDW Standard Deviation 54.3 fL (35.1-46.3); Red Blood Cell Count 4.62 M/mm3 (4.30-5.90); White Blood Cell Count 11.58 K/mm3 (4.00-11.30)
--- NOTE | 2022-01-20 06:05 | NUR ---
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 PATIENT REFUSED TURNING AT FIRST BUT AFTER EDUCATION ALLOWED NURSE TO CHANGE PAD UNDER HIM. THOUROUGHLY CLEANED PATIENT AND CHANGED ALL BEDDING AT START OF SHIFT. EDUCATED PATIENT TO NOTIFY AND ALLOW STAFF TO CLEAN HIM UP WHEN HE FEELS MOIST. SMALL WOUND ON TESTICLES NOTED, CHARTED IN SHIFT ASSESSMENT. PATIENT AOX4. PLEASANT AND COMPLIANT WITH CARE AFTER EDUCATION. VSS. PATIENT HAD A LOT OF URINARY OUTPUT VIA CATHETER 4975ML THIS 12HR SHIFT.
[2022-01-20 06:18] LABS: Bun/Creatinine Ratio 25.4 (12.0-20.0); Calcium, Blood 8.1 mg/dL (8.5-10.1); Creatinine, Blood 4.22 mg/dL (0.60-1.20); Potassium, Blood 3.3 mmol/L (3.5-5.5)
--- NOTE | 2022-01-20 09:17 | NUR ---
RN NOTE CALL FROM FIRER LOCOMOTIVE CRANE - HR 170S. ON ASSESSMENT PT SAID HE IS ASYMPTOMIC, FEELS COMPLETELY NORMML. BP READING 75/55 R ARM, RECHECKED L ARM 97.67. HR DOWN TO 150S, THEN 110 ON TELE BUT VERY SHORTLY AFTERWARDS GOT ANOTHER CALL FROM POSTAL MAIL CARRIER THAT HR 170S -180S. DR JAY CALLED AND NOTIFIED, SHE WILL FOLLOW UP.
--- NOTE | 2022-01-20 10:01 | NUR ---
RN NOTE S/B DR HUBBARD. PT SAID HE STILL FEELS WELL, ASYMPTOMATIC. ECG ORDERED, BEING DONE.
--- NOTE | 2022-01-20 12:08 | NUR ---
RN NOTE HEART RATE ELEVATED AT 150'S SOMETIMES UP TO 170S PER DIRECTOR OF INSTITUTIONAL GIVING. MANUAL BP DONE AT 97/67 R ARM AUTOMATIC BP WAS READING 75 TO 85 SYSTOLIC. PT SITTING UP IN CHAIR, SAID HE FEELS FINE, NO CHEST PAIN, ASYMPTOMATIC. O2 SAT 97% ON ROOM AIR. DR JAY CALLED WITH UPDATE AND CONCERN REGARDING HEART RATE. PT DID WELL GETTING UP OUT OF BED TO CHAIR, SCROTUM IS VERY SWOLLEN, EXCORIATED, OPEN SORES PHOTOGRAPHED. BLISTERS TO RIGHT INNER THIGH PHOTOGRAPHED AND ALSO POSSIBLE OLD BLISTERS R OUTER THIGH. NO STAT LOCK ON QUIROS CATHETER DUE TO POOR SKIN INTEGRITY AND POSSIBILITY THAT BLISTERS MAY HAVE BEEN SECONDARY TO PRIOR STAT LOCK.
--- NOTE | 2022-01-20 15:14 | NUR ---
RN NOTE IV FLUID BOLUS STILL INFUSING. HR REMAINS AROUND 140 AT THIS TIME, AROUND 350CC OF BOLUS INFUSED. PIV L A/C. MYSELF AND CHARGE NURSE TRIED ASKED PT IF WE COULD PLACE ANOTHER PIV (POSITIONAL IN ANTICUB) BUT PT DECLINED.
--- NOTE | 2022-01-20 15:51 | NUR ---
HR REMAINS IN 140S/150S DESPITE FLUID BOLUS. PT ASYMTOMATIC. DR HUBBARD INFORMED. PLAN TO TRANSFER PT TO PCU FOR TACHYCARDIA AND SOFT BLOOD PRESSURE. PUNCH CARD OPERATOR INFORMED.
--- NOTE | 2022-01-20 16:52 | NUR ---
RN NOTE REPORT GIVEN TO GABRIEL IN PCU. MT TRANSFERED DOWN TO PCU 9. NO CHANGES, ASYMPTOMATIC.
--- NOTE | 2022-01-20 18:42 | NUR ---
PCU ARRIVAL / END OF SHIFT NOTE PT BROUGHT TO PCU-09 BY BED FROM MEDICAL FLOOR RM 331 @ APPROX 1645. PT A&O X4. SPO2 > 92% ON RA. BP SOFT. MONITOR SHOWING HR 150s UPON ARRIVAL TO UNIT. IV LOPRESSOR GIVEN PER EMAR W/ HR DECREASE TO 130s, BUT THEN TRENDING BACK UP 140s-150s. CALL TO MD HUBBARD TO REPORT HR AFTER IV LOPRESSOR. W/ ORDER FOR IV AMIO GTT & HEPARIN GTT. PT DENIES SYMPTOMS W/ ELEVATED HR & LOW BP. PT W/ BLE & SCROTAL SWELLING. REDNESS NOTED TO R THING, SEE PHOTOS IN CHART. PT IN BED W/ BED ALARM ON. CALL LIGHT IN REACH.
--- NOTE | 2022-01-20 20:10 | NUR ---
NOTIFIED PROVIDER OF SBP <100. PATIENT IS ASYMPTOMATIC AND LUNGS ARE CTA BILATERALLY. NEW ORDERS OBTAINED FOR 250ML NS BOLUS.
--- NOTE | 2022-01-21 00:03 | NUR ---
PATIENT CONVERTED TO SINUS TACH AT THIS TIME
[2022-01-21 03:11] LABS: BASOPHILS ABSOLUTE AUTO 0.05 K/mm3 (0.00-0.23); BASOPHILS PERCENT AUTO 1 % (0-2); EOSINOPHILS ABSOLUTE AUTO 0.11 K/mm3 (0.00-0.68); EOSINOPHILS PERCENT AUTO 1 % (0-6); Hematocrit 35.6 % (37.0-53.0); Hemoglobin 11.4 g/dL (13.5-17.5); IMMATURE GRAN ABSOLUTE AUTO 0.03 K/mm3 (0.00-0.10); IMMATURE GRAN PERCENT AUTO 0 % (0-1); LYMPHOCYTES ABSOLUTE AUTO 1.11 K/mm3 (0.84-5.20); LYMPHOCYTES PERCENT AUTO 12 % (21-46); MONOCYTES ABSOLUTE AUTO 0.88 K/mm3 (0.16-1.47); MONOCYTES PERCENT AUTO 9 % (4-13); Mean Corpuscular HGB 27.6 pg (26.0-34.0); Mean Corpuscular Volume 86 fL (80-100); Mean Platelet Volume 10.5 fL (9.1-12.4); NEUTROPHILS ABSOLUTE AUTO 7.41 K/mm3 (1.96-9.15); NEUTROPHILS PERCENT AUTO 77 % (41-73); Platelet Count 182 K/mm3 (150-400); Red Blood Cell Count 4.13 M/mm3 (4.30-5.90); White Blood Cell Count 9.59 K/mm3 (4.00-11.30)
[2022-01-21 03:27] LABS: Bun/Creatinine Ratio 27.5 (12.0-20.0); Calcium, Blood 7.8 mg/dL (8.5-10.1); Creatinine, Blood 3.96 mg/dL (0.60-1.20); Potassium, Blood 3.3 mmol/L (3.5-5.5)
--- NOTE | 2022-01-21 06:29 | NUR ---
PATIENT CONVERTED TO SINUS RHYTHM AT APPROX MIDNIGHT AND REMAINED HEMODYNAMICALLY STABLE ALL EVENING. NO OTHER ACUTE CHANGES.
[2022-01-21 08:05] LABS: Albumin, Blood 1.8 g/dL (3.4-5.0); Albumin/Globulin Ratio 0.4 (0.8-1.8); Bilirubin, Direct 0.5 mg/dL (0.0-0.3); Bilirubin, Indirect 0.1 mg/dL (0.1-0.7); Bilirubin, Total 0.6 mg/dL (0.1-1.0); Globulin, Blood 4.4 g/dL (2.2-4.0); Thyroid Stimulating Hormone 2.32 uIU/mL (0.360-4.800); Total Protein, Blood 6.2 g/dL (6.4-8.2)
[2022-01-21 15:37] LABS: International Normalized Ratio 1.22; Prothrombin Time Results 12.6 Sec (9.7-11.5)
--- NOTE | 2022-01-21 18:35 | NUR ---
DAY SHIFT SUMMARY PT ORIENTED X4, [place]. SR ON TELEMETRY, ON AMIO GTT AND HEPARIN GTT. PER MD TRANSITION TO PO AMIO AND START PO WARFARIN. SEE EMAR FOR DETAILS. 24 HOUR URINE COLLECTION STARTED @ 08. GOOD APPETITE AND INTAKE. PER PT INDEPENDENT IN ADLS. ABLE TO MAKE NEEDS KNOWN. ON RA. WILL PASS ON TO BRYAN RN
[2022-01-22 04:41] LABS: Hematocrit 35.4 % (37.0-53.0); Hemoglobin 11.8 g/dL (13.5-17.5)
[2022-01-22 04:55] LABS: Albumin, Blood 1.9 g/dL (3.4-5.0); Anion Gap 10 mmol/L (6-16); Blood Urea Nitrogen 105 mg/dL (8-24); Bun/Creatinine Ratio 28.5 (12.0-20.0); CO2, Blood 29 mmol/L (21-32); Calcium, Blood 7.9 mg/dL (8.5-10.1); Chloride, Blood 96 mmol/L (98-108); Creatinine, Blood 3.69 mg/dL (0.60-1.20); Glomerular Filtration Rate 17 (60-); Glucose, Blood 117 mg/dL (70-99); Magnesium, Blood 1.8 mg/dL (1.6-2.4); Phosphorus, Blood 4.3 mg/dL (2.5-4.9); Potassium, Blood 4.1 mmol/L (3.5-5.5); Sodium, Blood 135 mmol/L (136-145)
[2022-01-22 04:59] LABS: International Normalized Ratio 1.23; Prothrombin Time Results 12.7 Sec (9.7-11.5)
--- NOTE | 2022-01-22 05:34 | NUR ---
SHIFT SUMMARY PT IS A/Ox4 AND IS COOPERATIVE WITH CARE PROVIDED BY STAFF. PT SLEPT T/O MOST OF THE NIGHT. REMAINED IN SR WITH A RATE OF 90'S. AMIO GTT WAS TURNED OFF AT THE START OF THE SHIFT FOR PT WAS BRIDGED TO PO AMIO INSTEAD BP'S ARE A LITTLE SOFT, BUT STABLE. 24 URINE COLLECTION CONTINUED T/O THE NIGHT THAT WILL END EARLY THIS AM. QUIROS CATH IN PLACE, PATENT AND DRAINING TO GRAVITY. VSS, NADN T/O THE SHIFT
[2022-01-22 10:11] LABS: Protein, Urine Quantitative 42.9 mg/dL (0.0-11.9)
[2022-01-23 04:38] LABS: Anti-Xa UFH, PHA Monitoring 0.21 IU/mL; International Normalized Ratio 1.28; Prothrombin Time Results 13.2 Sec (9.7-11.5)
[2022-01-23 04:58] LABS: Anion Gap 9 mmol/L (6-16); Blood Urea Nitrogen 101 mg/dL (8-24); Bun/Creatinine Ratio 29.3 (12.0-20.0); CO2, Blood 29 mmol/L (21-32); Calcium, Blood 8.2 mg/dL (8.5-10.1); Chloride, Blood 97 mmol/L (98-108); Creatinine, Blood 3.45 mg/dL (0.60-1.20); Glomerular Filtration Rate 19 (60-); Glucose, Blood 122 mg/dL (70-99); Phosphorus, Blood 4.1 mg/dL (2.5-4.9); Potassium, Blood 4.4 mmol/L (3.5-5.5); Sodium, Blood 135 mmol/L (136-145)
--- NOTE | 2022-01-23 05:18 | NUR ---
SHIFT SUMMARY PT IS A/Ox4 AND IS COOPERATIVE WITH CARE PROVIDED BY STAFF. PT HAS RESPONDED WELL TO THE PO AMIO FOR HIS HR REMAINS IN THE 90'S WITH SR. PT HAS NOT REPORTED ANY CP OR PRESSURE/LIGHT HEADEDNESS T/O THE SHIFT. HEPARIN RUNNING ORDERED VIA EMAR. QUIROS CATH IN PLACE, PATENT AND DRAINING TO GRAVITY. SCROTUM CONTINUES TO BE VERY SWOLLEN AND TENDER TO MOVE. BP CONTINUES TO BE STABLE RANGING FROM 100-110'S SBP. PT WAS CHANGED TO MED STATUS WITH TELE AND WILL LIKELY BE TRANSFERRING ONCE A BED BECOMES AVAILABLE. NADN, VSS T/O THE SHIFT
--- NOTE | 2022-01-23 17:30 | NUR ---
REPORT GIVEN TO TAD STEELE AT APPROXIMATELY 1730. PT TRANSPORTED AT 1730 TO SURGICAL FLOOR.
--- NOTE | 2022-01-23 18:38 | NUR ---
PT RESTING IN BED, DENIES ANY DISCOMFORT AT THIS TIME, REPORT TO NOC RN.
--- NOTE | 2022-01-24 00:10 | NUR ---
SUMMARY NO ISSUES NOTED. PT REMAINS ON HEPARIN DRIP. PT QUIROS DRAINING TO GRAVITY. PT DENIES CX PAIN OR SOB. PT REMAIN SR PER HANDSTITCHING MACHINE COLLAR FELLER. PT CURRENT;Y SLEEPING IN NO DISTRESS. CALL LIGHT IN REACH.
--- NOTE | 2022-01-24 00:56 | NUR ---
ASSUMED CARE OF PT. PT RESTING IN BED QUIETLY, RESP E/U, NO DISTRESS NOTED. CALL LIGHT IN REACH.
[2022-01-24 05:24] LABS: Bun/Creatinine Ratio 30.8 (12.0-20.0); Calcium, Blood 8.5 mg/dL (8.5-10.1); Creatinine, Blood 3.05 mg/dL (0.60-1.20); Potassium, Blood 4.6 mmol/L (3.5-5.5)
[2022-01-24 05:26] LABS: Anti-Xa UFH, PHA Monitoring 0.32 IU/mL; International Normalized Ratio 1.97; Prothrombin Time Results 19.8 Sec (9.7-11.5)
--- NOTE | 2022-01-24 07:26 | NUR ---
PT HAD NO CHANGES T/O NIGHT. VSS. PT DENIED CP/PRESSURE/SOB. HEPARIN GTT CONT PER ORDERS. ISHAAN STARK. PT INDEP IN ROOM, IS USING CALL LIGHT FOR ASSISTANCE.
[2022-01-24 12:45] LABS: Bun/Creatinine Ratio 27.8 (12.0-20.0); Calcium, Blood 8.3 mg/dL (8.5-10.1); Creatinine, Blood 2.95 mg/dL (0.60-1.20); Potassium, Blood 4.6 mmol/L (3.5-5.5)
[2022-01-24 12:52] LABS: International Normalized Ratio 2.5
[2022-01-24 13:21] LABS: Prothrombin Time Results 24.7 Sec (9.7-11.5)
[2022-01-24] MEDS ORDERED: METO25ER PO (16:21)
[2022-01-24] MEDS ORDERED: Amiodarone HCl200 MG PO (16:22)
[2022-01-24] MEDS ORDERED: AMIODARONE HCL400 M2 PO (16:22)
[2022-01-24] MEDS ORDERED: SOAANZ20 M1 PO (16:23)
[2022-01-24] MEDS ORDERED: WARF2.5 PO (16:28)
--- NOTE | 2022-01-24 16:43 | NUR ---
Met with pt to discuss his understanding or his disease and care need. asked him what he understood. He was a little evasive in discussing how serious his heart disease was. We discussed his fears and needs. We review advance care planning and polst and decison maker. He has a son that works long hours. His neighbor and friend help him the most she is and live two doors down. He has been having more pain and fatigue hed a fall. Did not make to his doctor and ran out of meds.We discussed the risks of missing appoinments and couls be life thratening. His neighbor came mid conversation. she just peter trough tis with her . She stated she will help him fill our AD and get a polst at primary appointmet. They need to talk about it first. Pt was more open and secure when she was present he is unsure of what he wants. pt is high risk for readmission. Advised hism to see dr herrera as often as he orders ant if to many missed appointments could lead to frquent ER time. pt kps score is 40% high risk for sudden cardiac event. will follow up may need hospice in next few months.
--- NOTE | 2022-01-24 16:54 | NUR ---
DISCHARGE PATIENT DOING WELL TODAY, NO ACUTE CHANGES. PATEINT DENIES SOB/DIFFICULTY BREATHING, CP/PRESSURE/PALPATIONS. VSS ON RA. EATING, DRINKING, & VOIDING WELL. PATIENT LOOKING FORWARD TO DISCHARGE ALL SHIFT, HAPPY TO BE ABLE TO GO HOME. DISCUSSED DISCHARGE INSTRUCTIONS AND FOLLOW-UP LAB ORDERS. SENT WITH PATIENT. RX FAXED TO [facility]. ESCORTED OUT VIA W/C.
== END 2022-01-24 16:50 | disposition home or self-care (01) | DRG 917 ==
LOC: ER 14:13 → MEDS 14:14 → SURS 19:20 → MEDS 19:20 → PCU 19:20 → MEDS 19:21 → PCU 01-20 16:50 → SURS 01-23 17:50
PROVIDERS: Emergency Medicine; Family Medicine; Hospitalist; Internal Medicine Nephrology; Physician Assistant; Student in an Organized Health Care Education/Training Program; ADMIT Internal Medicine
DX: T43.651A Poisoning by methamphetamines accidental (unintentional), initial encounter (principal); I50.23 Acute on chronic systolic (congestive) heart failure; N17.9 Acute kidney failure, unspecified; N39.0 Urinary tract infection, site not specified; E87.1 Hypo-osmolality and hyponatremia; I42.7 Cardiomyopathy due to drug and external agent; F15.10 Other stimulant abuse, uncomplicated; I48.91 Unspecified atrial fibrillation; N18.30 Chronic kidney disease, stage 3 unspecified; Z51.5 Encounter for palliative care; F10.20 Alcohol dependence, uncomplicated; N50.89 Other specified disorders of the male genital organs; I51.3 Intracardiac thrombosis, not elsewhere classified; E88.09 Other disorders of plasma-protein metabolism, not elsewhere classified; B95.2 Enterococcus as the cause of diseases classified elsewhere; I95.9 Hypotension, unspecified; R33.8 Other retention of urine; R80.9 Proteinuria, unspecified; N40.1 Benign prostatic hyperplasia with lower urinary tract symptoms; E87.6 Hypokalemia; D63.1 Anemia in chronic kidney disease; E86.9 Volume depletion, unspecified; Z71.51 Drug abuse counseling and surveillance of drug abuser; Z79.2 Long term (current) use of antibiotics; Z88.0 Allergy status to penicillin; Z79.899 Other long term (current) drug therapy; Z79.01 Long term (current) use of anticoagulants; Z91.14 Patient's other noncompliance with medication regimen
CPT/HCPCS: 36415; 51702; 51703; 51798; 71046; 74150; 76770; 76870; 80048; 80053; 80069; 80076; 81001; 81050; 82140; 82565; 83690; 83735; 83880; 84156; 84443; 84484; 85014; 85018; 85025; 85520; 85610; 87040; 87077; 87086; 87186; 93005; 93010; 94760; 97161; 99285-25; A9270; C8929; J0282; J0696; J1644; J1940; J3480; J7030; J7050; J7060; J7120; P9047; Q9957

== ENCOUNTER 2022-04-08 21:36 | Inpatient (IN) | payer OTHER, MEDICARE ==
[~2022-04-08] VITALS: Ht 152.4 cm; Wt 67.0 kg
[~2022-04-08 21:36] MED LIST changes: +AMIODARONE HCL400 M2 PO; +Amiodarone HCl200 MG PO; +SOAANZ20 M1 PO; +WARF2.5 PO
[2022-04-08 23:20] LABS: BASOPHILS ABSOLUTE AUTO 0.08 K/mm3 (0.00-0.23); BASOPHILS PERCENT AUTO 1 % (0-2); EOSINOPHILS ABSOLUTE AUTO 0.37 K/mm3 (0.00-0.68); EOSINOPHILS PERCENT AUTO 5 % (0-6); Hematocrit 27.3 % (37.0-53.0); Hemoglobin 8.8 g/dL (13.5-17.5); IMMATURE GRAN ABSOLUTE AUTO 0.03 K/mm3 (0.00-0.10); IMMATURE GRAN PERCENT AUTO 0 % (0-1); LYMPHOCYTES ABSOLUTE AUTO 1.68 K/mm3 (0.84-5.20); LYMPHOCYTES PERCENT AUTO 22 % (21-46); MONOCYTES ABSOLUTE AUTO 0.77 K/mm3 (0.16-1.47); MONOCYTES PERCENT AUTO 10 % (4-13); Mean Corpuscular HGB 30.7 pg (26.0-34.0); Mean Corpuscular HGB Conc 32.2 g/dL (31.5-36.5); Mean Corpuscular Volume 95 fL (80-100); Mean Platelet Volume 9.3 fL (9.1-12.4); NEUTROPHILS ABSOLUTE AUTO 4.67 K/mm3 (1.96-9.15); NEUTROPHILS PERCENT AUTO 61 % (41-73); Platelet Count 261 K/mm3 (150-400); RDW Coefficient Variation 18.7 % (11.7-14.2); RDW Standard Deviation 65.6 fL (35.1-46.3); Red Blood Cell Count 2.87 M/mm3 (4.30-5.90)
[2022-04-08 23:33] LABS: Bun/Creatinine Ratio 20.1 (12.0-20.0); Calcium, Blood 8.4 mg/dL (8.5-10.1); Creatinine, Blood 3.78 mg/dL (0.60-1.20); Potassium, Blood 3.4 mmol/L (3.5-5.5)
[2022-04-09 02:23] LABS: International Normalized Ratio 3.66; Prothrombin Time Results 35.3 Sec (9.7-11.5)
[2022-04-09 02:50] LABS: Source, Urine Foley catheter
[2022-04-09 02:52] LABS: Bilirubin, Urine Neg (Neg); Blood, Urine 2+ (Neg); Glucose Qualitative, Urine Neg (Neg); Ketones, Urine Neg (Neg); Leukocyte Esterase, Urine 3+ (Neg); Nitrite, Urine Pos (Neg); Protein, Urine 1+ (Neg); Urobilinogen, Urine NORM (Normal)
[2022-04-09 03:11] LABS: Appearance, Urine Hazy (Clear); Color, Urine Yellow (P-Yellow)
[2022-04-09 03:12] LABS: Bacteria Mod /hpf; Red Blood Cells, Urine 0-2 /hpf (0-2); Squamous Epithelial Cells Not Seen /hpf (Few); White Blood Cells, Urine TNTC /hpf (0-5)
[2022-04-09 05:20] LABS: BASOPHILS ABSOLUTE AUTO 0.05 K/mm3 (0.00-0.23); BASOPHILS PERCENT AUTO 1 % (0-2); EOSINOPHILS ABSOLUTE AUTO 0.05 K/mm3 (0.00-0.68); EOSINOPHILS PERCENT AUTO 1 % (0-6); Hematocrit 22.5 % (37.0-53.0); Hemoglobin 7.1 g/dL (13.5-17.5); IMMATURE GRAN ABSOLUTE AUTO 0.07 K/mm3 (0.00-0.10); IMMATURE GRAN PERCENT AUTO 1 % (0-1); LYMPHOCYTES ABSOLUTE AUTO 1.11 K/mm3 (0.84-5.20); LYMPHOCYTES PERCENT AUTO 11 % (21-46); MONOCYTES ABSOLUTE AUTO 0.72 K/mm3 (0.16-1.47); MONOCYTES PERCENT AUTO 7 % (4-13); Mean Corpuscular HGB 30.5 pg (26.0-34.0); Mean Corpuscular HGB Conc 31.6 g/dL (31.5-36.5); Mean Corpuscular Volume 97 fL (80-100); NEUTROPHILS ABSOLUTE AUTO 7.86 K/mm3 (1.96-9.15); NEUTROPHILS PERCENT AUTO 80 % (41-73); Platelet Count 211 K/mm3 (150-400); RDW Standard Deviation 67.2 fL (35.1-46.3); Red Blood Cell Count 2.33 M/mm3 (4.30-5.90); White Blood Cell Count 9.86 K/mm3 (4.00-11.30)
[2022-04-09 05:39] LABS: Albumin, Blood 2.7 g/dL (3.4-5.0); Albumin/Globulin Ratio 0.6 (0.8-1.8); Bilirubin, Total 0.4 mg/dL (0.1-1.0); Bun/Creatinine Ratio 19.8 (12.0-20.0); Calcium, Blood 7.9 mg/dL (8.5-10.1); Creatinine, Blood 3.83 mg/dL (0.60-1.20); Globulin, Blood 4.9 g/dL (2.2-4.0); Potassium, Blood 3.5 mmol/L (3.5-5.5); Total Protein, Blood 7.6 g/dL (6.4-8.2)
--- NOTE | 2022-04-09 06:06 | NUR ---
SHIFT SUMMARY PATIENT ARRIVED TO UNIT AROUND 0440. PATIENT IS ALERT AND ORIENTED x4, ABLE TO MAKE NEEDS KNOWN TO STAFF, ANSWERING ALL QUESTIONS APPROPRIATELY. VITALS STABLE, PATIENT PLACED ON 3L NC WHILE SLEEPING D/T DESATTING INTO MID 80s. QUIROS IN PLACE DRAINING CLEAR/YELLOW URINE. NO BRUISING OR DISCOLORATION NOTED TO RIGHT HIP, TIBIAL/PEDAL PULSES STRONG. IV FLUIDS INFUSING PER EMAR. NO SIGNIFICANT CHANGES, WILL REPORT TO DAY SHIFT RN.
[2022-04-09 14:53] LABS: International Normalized Ratio 1.96; Prothrombin Time Results 19.7 Sec (9.7-11.5)
--- NOTE | 2022-04-09 17:54 | NUR ---
ASSUMED CARE OF PT AT 0700 THIS AM. DISCUSSED PT AND CARE PLAN WITH DR ROSSI THIS AM, SURGERY CONSULT CALLED TO DR PITTS. VIT K AND 2 UNITS PRBCs GIVEN PER MD ORDERS, PT TOLERATED WELL WITHOUT ANY COMPLICATIONS NOTED. CARDIOLOGY CALLED AND DR SHEPPARD CONSULTED IN PT'S ROOM WHILE ECHOCARDIOGRAM IN PROGRESS. PT CLEARED FOR SURGERY BY CARDIOLOGY. PT DENIED MUCH PAIN IN HIS R HIP THIS AM, BUT PAIN INCREASED T/O THE EARLY AFTERNOON. DR ROSSI, DR MCKEON AND DR BLAND NOTIFIED AND STAT CTA PELVIS AND R LEG ORDERED. PT TRANSPORTED TO/FROM CTA WITHOUT COMPLICATIONS WHILE PRBCs CONTINUED TO INFUSE, RN AT BEDSIDE. DR ROSSI NOTIFIED OF PT'S C/O INCREASING PAIN, NEW ORDERS RECEIVED. DR BLAND IN ROOM TO SEE PT AT BEDSIDE, ORDERS FOR JAVED'S TRACTION AND PT TO BE NPO AFTER MIDNIGHT FOR POSSIBLE SX TOMORROW. VSS T/O THE SHIFT. PT ABLE TO USE CALL LIGHT FOR NEEDS, CALL LIGHT IN REACH, WILL CONTINUE TO MONITOR AND GIVE REPORT TO NOC SHIFT RN.
[2022-04-10 04:19] LABS: Hematocrit 22.7 % (37.0-53.0); Hemoglobin 7.6 g/dL (13.5-17.5); Mean Corpuscular HGB 30.2 pg (26.0-34.0); Mean Corpuscular HGB Conc 33.5 g/dL (31.5-36.5); Mean Platelet Volume 9.5 fL (9.1-12.4); Platelet Count 183 K/mm3 (150-400); RDW Coefficient Variation 20.3 % (11.7-14.2); RDW Standard Deviation 66.4 fL (35.1-46.3); Red Blood Cell Count 2.52 M/mm3 (4.30-5.90)
[2022-04-10 04:23] LABS: Mean Corpuscular Volume 90 fL (80-100)
[2022-04-10 04:32] LABS: International Normalized Ratio 1.36
[2022-04-10 04:41] LABS: Albumin, Blood 2.6 g/dL (3.4-5.0); Anion Gap 12 mmol/L (6-16); Blood Urea Nitrogen 75 mg/dL (8-24); Bun/Creatinine Ratio 21.2 (12.0-20.0); CO2, Blood 21 mmol/L (21-32); Calcium, Blood 8.3 mg/dL (8.5-10.1); Chloride, Blood 100 mmol/L (98-108); Creatinine, Blood 3.54 mg/dL (0.60-1.20); Glomerular Filtration Rate 18 (60-); Glucose, Blood 132 mg/dL (70-99); Phosphorus, Blood 5.8 mg/dL (2.5-4.9); Potassium, Blood 3.5 mmol/L (3.5-5.5); Sodium, Blood 133 mmol/L (136-145)
--- NOTE | 2022-04-10 05:13 | NUR ---
SHIFT SUMMARY A/OX4, PLEASANT AND COOPERATIVE WITH CARE. BEDREST AT THIS TIME, BUCKS TRACTION IN PLACE TO RLE T/O THE NIGHT. C/O PAIN TO RLE, MEDICATED PER EMAR. NPO SINCE MIDNIGHT. 1 MEDIUM SOFT BM THIS SHIFT. VSS, NO AUTE CHANGES AT THIS TIME. BED IN LOWEST POSITION WITH CALL LIGHT IN REACH. WILL CONTINUE TO MONITOR AND REPORT TO ONCOMING RN.
--- NOTE | 2022-04-10 14:45 | NUR ---
PATIENT ARRIVED TO SURGICAL UNIT VIA BED. BUCKS TARCTION IN PALCE TO RIGHT LEG. MARGARET WRAP AROUND RIGHT HIP, APPEARS C/D/I. PATIENT ABLE TO WIGGLE TOES, HAS GOOD PEDAL PULSES. VSS ON ROOM AIR. PATIENT REPORTS PAIN TO BE TOLERABLE AT THIS TIME. ORIENTED TO ROOM AND CALL LIGHT.
--- NOTE | 2022-04-10 17:03 | NUR ---
SHIFT SUMMARY NO ACUTE CHANGES SINCE ARRIVAL TO UNIT. MODERATE AMOUNT OF PAIN, MEDICATED PER EMAR. BUCKS TRACTION REMAINS IN PLACE TO RLE. PATIENT TO BE NPO AT MIDNIGHT, PLAN FOR SURGERY TOMORROW. QUIROS REMAINS IN PLACE, DRAINING CLEAR YELLOW URINE. CALL LIGHT IN REACH, WILL REPORT TO ONCOMING RN AT 1900.
[2022-04-11 03:57] LABS: Hematocrit 20.4 % (37.0-53.0); Hemoglobin 6.8 g/dL (13.5-17.5); Mean Corpuscular HGB 31.1 pg (26.0-34.0); Mean Corpuscular HGB Conc 33.3 g/dL (31.5-36.5); Mean Corpuscular Volume 93 fL (80-100); Mean Platelet Volume 9.2 fL (9.1-12.4); Platelet Count 157 K/mm3 (150-400); RDW Coefficient Variation 20.1 % (11.7-14.2); RDW Standard Deviation 68.8 fL (35.1-46.3); Red Blood Cell Count 2.19 M/mm3 (4.30-5.90); White Blood Cell Count 9.22 K/mm3 (4.00-11.30)
[2022-04-11 04:12] LABS: International Normalized Ratio 1.18; Prothrombin Time Results 12.3 Sec (9.7-11.5)
[2022-04-11 04:17] LABS: Albumin, Blood 2.4 g/dL (3.4-5.0); Anion Gap 8 mmol/L (6-16); Blood Urea Nitrogen 70 mg/dL (8-24); Bun/Creatinine Ratio 18.9 (12.0-20.0); CO2, Blood 24 mmol/L (21-32); Calcium, Blood 8.2 mg/dL (8.5-10.1); Chloride, Blood 99 mmol/L (98-108); Creatinine, Blood 3.71 mg/dL (0.60-1.20); Glomerular Filtration Rate 17 (60-); Glucose, Blood 115 mg/dL (70-99); Phosphorus, Blood 5.8 mg/dL (2.5-4.9); Potassium, Blood 3.4 mmol/L (3.5-5.5); Sodium, Blood 131 mmol/L (136-145)
--- NOTE | 2022-04-11 05:42 | NUR ---
Patient resting in bed, prn pain meds given x2. Pulses strong and intact in lower extremities, patient denies numbness. CIWA score 1-4 for fidgiting. No tremors noted at this time. Patient placed NPO at midnight. NC 1L in place for sats of 88% Patient now satting >92 post O2 administration. Son came to visit patient. No questions or concerns at this time.
[2022-04-11 11:57] LABS: Hematocrit 23.1 % (37.0-53.0); Hemoglobin 7.7 g/dL (13.5-17.5)
--- NOTE | 2022-04-11 12:53 | NUR ---
PT HAS TWO 20 G IV'S. ONE 20 G IN L FA, FLOWS WELL TO GRAVITY. SHOWS NO SIGNS OF INFILTRATION, NO REDNESS OR LEAKING. ONE 20 G IN R FA. FLOWS WELL TO GRAVITY, NO SIGNS OF INFILTRATION, NO REDNESS, NO LEAKING.
--- NOTE | 2022-04-11 14:41 | NUR ---
04/11/22 1441 Zoe Epps 2G ANCEF GIVEN BY ANESTHESIA AT 1407
--- NOTE | 2022-04-11 17:54 | NUR ---
SHIFT SUMMARY PATIENT DROWSY AND SOMEWHAT FORGETFUL DURING AM. BEDREST WITH R HIP FX. LOW H&H, 1 UNIT PRBC TRANSFUSED BEFORE SURGERY. MEDICATED FOR PAIN PER EMAR. ISHAAN PATENT. WENT TO OR ABOUT 1230. RETURNED ABOUT 1630. GAUZE WITH TAPE TO RIGHT HIP. 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 TOLERATING REGULAR DIET AND LIQUIDS. ISHAAN DC'D AT 1700, WILL MONITOR WITH BS. MEDICATED FOR PAIN PER EMAR. ROUTINE POST OP IV FLUIDS. MOVES RIGHT ANKLE AND TOES, REPORTS FULL SENSATION. TTWB ORDER. PATIENT IS RESTING IN BED AT THIS TIME WATCHING TV WHILE EATING DINNER. CIWAS SCORE OF 2 THIS SHIFT. VSS.
[2022-04-12 04:39] LABS: BASOPHILS ABSOLUTE AUTO 0.01 K/mm3 (0.00-0.23); BASOPHILS PERCENT AUTO 0 % (0-2); EOSINOPHILS PERCENT AUTO 0 % (0-6); Hematocrit 20.4 % (37.0-53.0); Hemoglobin 6.7 g/dL (13.5-17.5); IMMATURE GRAN ABSOLUTE AUTO 0.03 K/mm3 (0.00-0.10); IMMATURE GRAN PERCENT AUTO 0 % (0-1); LYMPHOCYTES ABSOLUTE AUTO 0.44 K/mm3 (0.84-5.20); LYMPHOCYTES PERCENT AUTO 5 % (21-46); MONOCYTES PERCENT AUTO 4 % (4-13); Mean Corpuscular HGB 30.3 pg (26.0-34.0); Mean Corpuscular HGB Conc 32.8 g/dL (31.5-36.5); Mean Corpuscular Volume 92 fL (80-100); NEUTROPHILS PERCENT AUTO 91 % (41-73); Platelet Count 161 K/mm3 (150-400); RDW Coefficient Variation 20.3 % (11.7-14.2); Red Blood Cell Count 2.21 M/mm3 (4.30-5.90); White Blood Cell Count 9.28 K/mm3 (4.00-11.30)
[2022-04-12 04:59] LABS: International Normalized Ratio 1.14; Prothrombin Time Results 11.9 Sec (9.7-11.5)
[2022-04-12 05:24] LABS: Bun/Creatinine Ratio 17.9 (12.0-20.0); Calcium, Blood 7.9 mg/dL (8.5-10.1); Creatinine, Blood 3.58 mg/dL (0.60-1.20); Magnesium, Blood 2.3 mg/dL (1.6-2.4)
--- NOTE | 2022-04-12 07:34 | NUR ---
SUMMARY PT DESATS 88% WHILE SLEEPING CONFIRMED BY MYSELF MONITORING CONT PULSE OX.O2 PLACED AT 2 L.PT ALSO NOTES HAVING CLEAR FLUID COMING FROM RECTUM-STATES X2 DAYS FROM ADMIT.ALSO NOTED H/H DROP AGAIN AFTER RECEIVING BLOOD YESTERDAY.DAY RN GOLDY AWARE OF ABOVE AND AGREES TO FOLLOW UP.
--- NOTE | 2022-04-12 18:10 | NUR ---
SHIFT SUMMARY ALERT AND ORIENTED, [place], OCC FORGETFUL, POOR HISTORIAN. LOW H&H, TRANSFUSED 2 UNITS PRBC. PATIENT TOLERATED WELL AND VSS. TOLERATING CARDIAC DIET AND LIQUIDS. SBA WITH FWW, MAINTAINS TTWB TO RIGHT LEG. DRESSINGS TO RIGHT HIP CHANGED TO AQUACELS THIS SHIFT BY DR GUDINO. MEDICATED FOR PAIN PRN. VOIDING WELL, SMALL LIQUID STOOLS AT THIS TIME. CIWAS 2 THIS SHIFT.
[2022-04-13 04:17] LABS: Hematocrit 26.1 % (37.0-53.0); Hemoglobin 8.7 g/dL (13.5-17.5); Mean Corpuscular HGB 30.2 pg (26.0-34.0); Mean Corpuscular HGB Conc 33.3 g/dL (31.5-36.5); Mean Corpuscular Volume 91 fL (80-100); Mean Platelet Volume 9.6 fL (9.1-12.4); Platelet Count 180 K/mm3 (150-400); RDW Coefficient Variation 18.8 % (11.7-14.2); RDW Standard Deviation 61.1 fL (35.1-46.3); Red Blood Cell Count 2.88 M/mm3 (4.30-5.90); White Blood Cell Count 12.11 K/mm3 (4.00-11.30)
[2022-04-13 04:30] LABS: International Normalized Ratio 1.46
[2022-04-13 04:46] LABS: Albumin, Blood 2.5 g/dL (3.4-5.0); Anion Gap 9 mmol/L (6-16); Blood Urea Nitrogen 71 mg/dL (8-24); Bun/Creatinine Ratio 20.5 (12.0-20.0); CO2, Blood 24 mmol/L (21-32); Calcium, Blood 8.2 mg/dL (8.5-10.1); Chloride, Blood 104 mmol/L (98-108); Creatinine, Blood 3.47 mg/dL (0.60-1.20); Glomerular Filtration Rate 18 (60-); Glucose, Blood 111 mg/dL (70-99); Phosphorus, Blood 4.5 mg/dL (2.5-4.9); Potassium, Blood 4.2 mmol/L (3.5-5.5); Sodium, Blood 137 mmol/L (136-145)
--- NOTE | 2022-04-13 04:50 | NUR ---
BAND STRAIGHTENER SUMMARY NO ACUTE CHANGES THIS SHIFT. PT AAOX4 AND STANDBY ASSIST W/ FWW. AQUACEL DRESSING C/D/I X2 TO R HIP, SWELLING NOTED AROUND HIP. MEDICATED FOR PAIN X1 PER EMAR WITH GOOD PAIN CONTROLL. HGB 8.7 THIS MORNING AFTER 2 UNITS PRBC'S YESTERDAY. VSS, WILL CONTINUE TO MONITOR.
--- NOTE | 2022-04-13 19:12 | NUR ---
SUMMARY: PT IS POD2 R HIP NAILING. A/O, VSS. PAIN MANAGED WITH 1 NARCO, NEEDED X2 TODAY. PT ABLE TO WORK WITH OT/PT, SEE NOTES. STOOL SOFTNERS HELD TODAY- PT REPORTED LOOSE STOOLS. SURGICAL SITE WNL-TONIGHT THIS RN AND ON-COMING RN SONY ASSESSED SMALL AMT BLEEDING TO 1 AQUACEL DURING BEDSIDE REPORT, PLAN TO MONITOR. HOME DOSE OF COUMADIN RESTARTED TONIGHT. NO ACUTE SAFETY CONCERNS, REPORT PASSED TO SONY.
--- NOTE | 2022-04-14 04:07 | NUR ---
POD3 RIGHT HIP NAILING. AQUACEL DRESSINGS CHANGED THIS SHIFT, INCISIONS CLEANED WITH WOUND SPRAY. THE BOTTOM AQUACEL WAS SATURATED WITH SANGUINEOUS OUTPUT, THE TOP AQUACEL WAS HALF SATURATED. VSS. PT SLEPT WELL T/O THE NIGHT. MODERATE SWELLING NOTED IN RIGHT HIP, PT ENCOURAGED TO UTILIZE ICE AND REPOSITIONING T/O THE NIGHT. MEDICATED FOR PAIN WTIH NOR[place]. AMBULATED TO THE BATHROOM WITH FWW AT THE BEGINNING OF SHIFT. PLAN FOR PT TO CONTINUE TO WORK WITH THERAPY AND HAVE H&H MONITORED. POSSIBLE D/C IF LABS ARE STABLE. THE PATIENT IS CURRENTLY SLEEPING, IN NO DISTRESS, CALL LIGHT IN REACH
[2022-04-14 04:44] LABS: Hematocrit 26.7 % (37.0-53.0); Hemoglobin 8.6 g/dL (13.5-17.5); Mean Corpuscular HGB 30.2 pg (26.0-34.0); Mean Corpuscular HGB Conc 32.2 g/dL (31.5-36.5); Mean Corpuscular Volume 94 fL (80-100); Mean Platelet Volume 8.9 fL (9.1-12.4); Platelet Count 183 K/mm3 (150-400); RDW Standard Deviation 63.9 fL (35.1-46.3); Red Blood Cell Count 2.85 M/mm3 (4.30-5.90); White Blood Cell Count 9.51 K/mm3 (4.00-11.30)
[2022-04-14 04:57] LABS: International Normalized Ratio 1.64; Prothrombin Time Results 16.7 Sec (9.7-11.5)
[2022-04-14] MEDS ORDERED: TAMS.4ER PO (17:02)
[2022-04-14] MEDS ORDERED: DOCU100 PO (17:03)
[2022-04-14] MEDS ORDERED: ACET325 PO (17:03)
[2022-04-14] MEDS ORDERED: HYDR1TAB94 PO (17:04)
--- NOTE | 2022-04-14 17:55 | NUR ---
DISCHARGE SUMMARY PATIENT ALERT AND ORIENTED. AMBULATING IN ROOM WITH SBA, FWW, AND MAINTAINING TTWB. TOLERATING CARDIAC DIET AND LIQUIDS. VOIDING WELL. H&H STABLE. AQUACELS C/D/I. VSS. CLEARED FOR DISCHARGE HOME BY PT WITH HOME HEALTH. DISCHARGE ORDER GIVEN. DISCHARGE INSTRUCTIONS GIVEN ON NEW MEDICATIONS, INCISION CARE, FOLLOW UP APPTS WITH PHYSICAL THERAPY AND ORTHO. PATIENT LEFT UNIT AT 1730 VIA WHEELCHAIR WITH [facility] FOR HOME.
== END 2022-04-14 18:24 | disposition home or self-care (01) | DRG 481 ==
LOC: ER 21:36 → SURS 04-09 03:55 → PCU 04-09 03:55 → SURS 04-10 13:55
PROVIDERS: Emergency Medicine; Family Medicine; Internal Medicine; Orthopaedic Surgery; Pharmacist; ADMIT Internal Medicine
PROC: 30233N1 Transfusion of Nonautologous Red Blood Cells into Peripheral Vein, Percutaneous Approach (ICD-10-PCS; 2022-04-09)
PROC: 0QS634Z Reposition Right Upper Femur with Internal Fixation Device, Percutaneous Approach (ICD-10-PCS; principal; 2022-04-11 13:30)
DX: S72.141A Displaced intertrochanteric fracture of right femur, initial encounter for closed fracture (principal); D62 Acute posthemorrhagic anemia; I31.2 Hemopericardium, not elsewhere classified; N17.9 Acute kidney failure, unspecified; E87.1 Hypo-osmolality and hyponatremia; I42.0 Dilated cardiomyopathy; I31.39 Other pericardial effusion (noninflammatory); I50.22 Chronic systolic (congestive) heart failure; N13.6 Pyonephrosis; I13.0 Hypertensive heart and chronic kidney disease with heart failure and stage 1 through stage 4 chronic kidney disease, or unspecified chronic kidney disease; F10.229 Alcohol dependence with intoxication, unspecified; E83.39 Other disorders of phosphorus metabolism; R79.1 Abnormal coagulation profile; N40.1 Benign prostatic hyperplasia with lower urinary tract symptoms; R33.8 Other retention of urine; E87.6 Hypokalemia; N13.9 Obstructive and reflux uropathy, unspecified; I48.0 Paroxysmal atrial fibrillation; F15.10 Other stimulant abuse, uncomplicated; N18.30 Chronic kidney disease, stage 3 unspecified; F17.210 Nicotine dependence, cigarettes, uncomplicated; B95.2 Enterococcus as the cause of diseases classified elsewhere; Z88.0 Allergy status to penicillin; V49.49XA Driver injured in collision with other motor vehicles in traffic accident, initial encounter; Z79.899 Other long term (current) drug therapy; Z79.01 Long term (current) use of anticoagulants
CPT/HCPCS: 36415; 36430; 51702; 70450; 71260; 73502; 73706; 74176; 80048; 80053; 80069; 81001; 82947; 83735; 84484; 85014; 85018; 85025; 85027; 85610; 85730; 86850; 86900; 86901; 86923; 87077; 87086; 87186; 93005; 93010; 93308; 93321; 94760; 94762; 96374; 97110; 97116; 97161; 97166; 97530; 97535; 99285-25; A9270; C1713; C1769; G0480; J0171; J0690; J0696; J1100; J1885; J2370; J2405; J2704; J3010; J3370; J3411; J3430; J3480; J7030; J7050; J7120; P9016; Q9967

== ENCOUNTER → 2022-07-04 | Outpatient (CLI) | payer MEDICARE ==
[~2022-07-04] MED LIST changes: +ACET325 PO; +DOCU100 PO; +HYDR1TAB94 PO
[2022-07-05 11:09] LABS: PSA, %Free 24.4 %; PSA, Free 0.325 ng/mL
[2022-07-05 11:10] LABS: Alanine Aminotransfer (ALT/SGP 19 U/L (12-78); Albumin/Globulin Ratio 0.6 (0.8-1.8); Alk Phos 98 U/L (50-136); Anion Gap 6 mmol/L (6-16); Aspartate Aminotrans (AST/SGOT 18 U/L (12-37); Bilirubin, Total 0.2 mg/dL (0.1-1.0); Blood Urea Nitrogen 61 mg/dL (8-24); Bun/Creatinine Ratio 17.8 (12.0-20.0); CO2, Blood 26 mmol/L (21-32); Calcium, Blood 8.6 mg/dL (8.5-10.1); Chloride, Blood 105 mmol/L (98-108); Creatinine, Blood 3.42 mg/dL (0.60-1.20); Globulin, Blood 5.3 g/dL (2.2-4.0); Glomerular Filtration Rate 19 (60-); Glucose, Blood 107 mg/dL (70-99); Sodium, Blood 137 mmol/L (136-145); Total Protein, Blood 8.3 g/dL (6.4-8.2)
== END | disposition home or self-care (01) ==
LOC: LAB 15:46 → LAB SHORT 15:46
PROVIDERS: Student in an Organized Health Care Education/Training Program
DX: N18.4 Chronic kidney disease, stage 4 (severe) (principal); R33.8 Other retention of urine; N40.1 Benign prostatic hyperplasia with lower urinary tract symptoms
CPT/HCPCS: 80053; 84153; 84154

== ENCOUNTER → 2022-07-11 | Outpatient (CLI) | payer MEDICARE ==
[2022-07-11 17:32] LABS: Albumin, Blood 3.2 g/dL (3.4-5.0); Anion Gap 10 mmol/L (6-16); Blood Urea Nitrogen 52 mg/dL (8-24); Bun/Creatinine Ratio 16.7 (12.0-20.0); CO2, Blood 24 mmol/L (21-32); Chloride, Blood 102 mmol/L (98-108); Creatinine, Blood 3.12 mg/dL (0.60-1.20); Glomerular Filtration Rate 21 (60-); Glucose, Blood 107 mg/dL (70-99); Phosphorus, Blood 3.8 mg/dL (2.5-4.9); Potassium, Blood 3.8 mmol/L (3.5-5.5); Sodium, Blood 136 mmol/L (136-145)
== END | disposition home or self-care (01) ==
LOC: LAB 13:47 → LAB SHORT 13:47
PROVIDERS: Family Medicine
DX: N40.1 Benign prostatic hyperplasia with lower urinary tract symptoms (principal); R33.8 Other retention of urine
CPT/HCPCS: 80069

== ENCOUNTER → 2022-07-11 | Outpatient (CLI) | payer MEDICARE | END | disposition home or self-care (01) | LOC: LAB 14:43 → LAB SHORT 14:43 | DX: N39.0 Urinary tract infection, site not specified (principal) | CPT/HCPCS: 87086 ==

== ENCOUNTER 2022-10-11 10:50 | Inpatient (IN) | payer MEDICARE ==
[~2022-10-11] VITALS: Ht 162.6 cm; Wt 62.4 kg
[2022-10-11] MEDS ORDERED: FINA5 PO (11:04)
[2022-10-11] MEDS ORDERED: TAMS.4ER PO (11:04)
[2022-10-11] MEDS ORDERED: TADA10TA PO (11:06)
[2022-10-11 11:51] LABS: BASOPHILS ABSOLUTE AUTO 0.05 K/mm3 (0.00-0.23); BASOPHILS PERCENT AUTO 1 % (0-2); EOSINOPHILS PERCENT AUTO 1 % (0-6); Hematocrit 20.2 % (37.0-53.0); Hemoglobin 6.6 g/dL (13.5-17.5); IMMATURE GRAN ABSOLUTE AUTO 0.04 K/mm3 (0.00-0.10); IMMATURE GRAN PERCENT AUTO 0 % (0-1); LYMPHOCYTES ABSOLUTE AUTO 0.87 K/mm3 (0.84-5.20); LYMPHOCYTES PERCENT AUTO 8 % (21-46); MONOCYTES ABSOLUTE AUTO 0.96 K/mm3 (0.16-1.47); MONOCYTES PERCENT AUTO 9 % (4-13); Mean Corpuscular HGB 30.7 pg (26.0-34.0); Mean Corpuscular HGB Conc 32.7 g/dL (31.5-36.5); Mean Corpuscular Volume 94 fL (80-100); Mean Platelet Volume 8.8 fL (9.1-12.4); NEUTROPHILS ABSOLUTE AUTO 8.98 K/mm3 (1.96-9.15); NEUTROPHILS PERCENT AUTO 82 % (41-73); Platelet Count 274 K/mm3 (150-400); RDW Coefficient Variation 15.2 % (11.7-14.2); RDW Standard Deviation 52.6 fL (35.1-46.3); Red Blood Cell Count 2.15 M/mm3 (4.30-5.90)
[2022-10-11 11:54] LABS: Source, Urine Clean Catch
[2022-10-11 12:01] LABS: Albumin/Globulin Ratio 0.6 (0.8-1.8); Bilirubin, Total 0.4 mg/dL (0.1-1.0); Calcium, Blood 8.5 mg/dL (8.5-10.1); Creatinine, Blood 5.39 mg/dL (0.60-1.20); Globulin, Blood 4.7 g/dL (2.2-4.0); Potassium, Blood 3.1 mmol/L (3.5-5.5); Total Protein, Blood 7.7 g/dL (6.4-8.2)
[2022-10-11 12:32] LABS: Prothrombin Time Results 66.3 Sec (9.7-11.5)
[2022-10-11 12:38] LABS: Appearance, Urine Bloody (Clear); Bilirubin, Urine Neg (Neg); Blood, Urine 5+ (Neg); Color, Urine Red (P-Yellow); Glucose Qualitative, Urine Neg (Neg); Ketones, Urine 1+ (Neg); Leukocyte Esterase, Urine 2+ (Neg); Nitrite, Urine Neg (Neg); Protein, Urine 4+ (Neg); Urobilinogen, Urine NORM (Normal)
[2022-10-11 12:59] LABS: International Normalized Ratio 7.05
[2022-10-11 12:59] LABS: Red Blood Cells, Urine TNTC /hpf (0-2)
[2022-10-11 13:01] LABS: Squamous Epithelial Cells Rare /hpf (Few)
[2022-10-11 13:02] LABS: Bacteria Many /hpf
[2022-10-11 15:18] LABS: Source, Urine Foley catheter
[2022-10-11 15:29] LABS: Appearance, Urine Bloody (Clear); Bilirubin, Urine Neg (Neg); Blood, Urine 5+ (Neg); Color, Urine Red (P-Yellow); Glucose Qualitative, Urine Neg (Neg); Ketones, Urine Neg (Neg); Nitrite, Urine Neg (Neg); Protein, Urine 4+ (Neg); Urobilinogen, Urine NORM (Normal)
[2022-10-11 15:39] LABS: Leukocyte Esterase, Urine 2+ (Neg)
[2022-10-11 15:48] LABS: Bacteria Many /hpf; Red Blood Cells, Urine TNTC /hpf (0-2); Squamous Epithelial Cells Rare /hpf (Few)
[2022-10-11 16:49] VITALS: BP 146/80
[2022-10-11 17:54] VITALS: BP 118/59
--- NOTE | 2022-10-11 18:08 | NUR ---
PT ADMITTED TO ROOM THIS AFT. NO C/O PAIN, A/O X3, PLEASANT. BLOOD INFUSING PRESENTLY. FINISHED PRIOR TO 1800. NOWD INFUSING NS AT 100 PER ORDERS. ADMIN ASSESSMENT DONE. H/R REG, NO MURMUR NOTED. PER TELE NSR AT 92. LUNGS CLEAR, RESP EASY, UNLABORED. ON R/A. BT X4 LAST BM THIS AM PER PT. VOIDS QUIROS CATH DRAINING RED FLUID. PT PRESENTLY BEDBOUND PER ORDERS. STATES NORMALLY AMBULATORY AT HOME. HAS DOGS HE CARES FOR. BED IN LOW POSITION, CA LL LITE IN REACH, CALLS APPROP
--- NOTE | 2022-10-11 18:42 | NUR ---
SHINGLER CALLED, STATES ST ELEVATION ON TELE, SINCE TELE PLACED. NOTES IN CHART FROM EKG SHOW ST & T WAVE ABNORMALAITY. PT DENIES CHEST PAIN. DENIES CHEST TIGHTNESS. DENIES ANY CHANGES. CALLED DR GUAJARDO, NO NEW ORDERS
[2022-10-11 20:07] VITALS: BP 105/60
[2022-10-12] VITALS (10 sets, daily range): BP systolic 76–105; BP diastolic 45–64
[2022-10-12 05:17] LABS: BASOPHILS ABSOLUTE AUTO 0.04 K/mm3 (0.00-0.23); BASOPHILS PERCENT AUTO 0 % (0-2); EOSINOPHILS ABSOLUTE AUTO 0.16 K/mm3 (0.00-0.68); EOSINOPHILS PERCENT AUTO 1 % (0-6); Hematocrit 21.1 % (37.0-53.0); Hemoglobin 6.9 g/dL (13.5-17.5); IMMATURE GRAN ABSOLUTE AUTO 0.06 K/mm3 (0.00-0.10); IMMATURE GRAN PERCENT AUTO 1 % (0-1); LYMPHOCYTES ABSOLUTE AUTO 1.21 K/mm3 (0.84-5.20); LYMPHOCYTES PERCENT AUTO 10 % (21-46); MONOCYTES ABSOLUTE AUTO 1.26 K/mm3 (0.16-1.47); MONOCYTES PERCENT AUTO 11 % (4-13); Mean Corpuscular HGB Conc 32.7 g/dL (31.5-36.5); Mean Corpuscular Volume 92 fL (80-100); NEUTROPHILS ABSOLUTE AUTO 9.26 K/mm3 (1.96-9.15); NEUTROPHILS PERCENT AUTO 77 % (41-73); Platelet Count 244 K/mm3 (150-400); RDW Coefficient Variation 16.1 % (11.7-14.2); RDW Standard Deviation 54.3 fL (35.1-46.3); White Blood Cell Count 11.99 K/mm3 (4.00-11.30)
[2022-10-12 06:00] LABS: Bun/Creatinine Ratio 14.6 (12.0-20.0); Calcium, Blood 7.9 mg/dL (8.5-10.1); Creatinine, Blood 5.07 mg/dL (0.60-1.20); Potassium, Blood 3.4 mmol/L (3.5-5.5)
--- NOTE | 2022-10-12 07:17 | NUR ---
Shift Summary Pt had bright red urine t/o most of the night. This AM his urine is yellow with only a small amount of redness. No c/o chest pain or discomfort. Kingsley catheter had no blockages and did not require irrigation. Pt AOx4. BP soft this morning but stable. Slept well t/o the night, cooperative with care.
[2022-10-12 08:32] LABS: International Normalized Ratio 1.23; Prothrombin Time Results 12.8 Sec (9.7-11.5)
[2022-10-12 15:58] LABS: Hematocrit 23.1 % (37.0-53.0); Hemoglobin 7.7 g/dL (13.5-17.5)
--- NOTE | 2022-10-12 17:56 | NUR ---
SHIFT SUMMARY: HYPOTENSIVE JUST PRIOR TO TRANSFUSION WITH BP RECOVERING TOWARDS NORMAL FOR THIS PATIENT AFTER COMPLETION. H/H 6.9/-->7.7/, TOLERATED PRBC'S WELL. QUIROS DRAINING CLEAR, YELLOW URINE, NO HEMATURIA NOTED. NO EVENTS ON TELEMETRY, SR 70'S. DENIED PAIN. WAS DISAPPOINTED THAT HE WOULD NOT BE DISCHARGED TODAY, BUT UNDERSTOOD ABOUT CHECKING KIDNEY LABS TOMORROW.
--- NOTE | 2022-10-13 02:35 | NUR ---
PT EDUCATED ON [facility] FIRE SAFETY IGNITION/EXPLOSIVE SOURCES NON SMOKING POLICY AND VERBALIZED UNDERSTANDING.
--- NOTE | 2022-10-13 03:42 | NUR ---
SHIFT SUMMARY NOC PT A/O X 4. PLEASANT AND COOPERATIVE WITH CARE. NO ACUTE CHANGES TO REPORT. PT HAS QUIROS IN PLACE FREE OF BLOOD DRAINING YELLOW URINE. ON TELE RUNNING SINUS RHYTHM @ 73 BPM. BP STILL SOFT AND WCTM. 1L NS X 1 INFUSING @ 75 ML/HR.PT HGB 7.7, NA 132, K 3.4, AWAITING AM LABS FOR BOTH AND RENAL PANEL. PT HAS UROLOGY APPOINTMENT TODAY @ 1400. PT IS POSSIBLE DISCHARGE TODAY PENDING LABS AND UROLOGY APPOINTMENT. PT IS CURRENTLY RESTING WITH BED IN LOWEST POSITION, AND CALL LIGHT WITHIN REACH.
[2022-10-13 04:06] VITALS: BP 115/63
[2022-10-13 07:11] VITALS: BP 129/71
[2022-10-13 08:07] LABS: Hematocrit 23.5 % (37.0-53.0); Hemoglobin 7.9 g/dL (13.5-17.5); Mean Corpuscular HGB 30.5 pg (26.0-34.0); Mean Corpuscular HGB Conc 33.6 g/dL (31.5-36.5); Mean Corpuscular Volume 91 fL (80-100); Mean Platelet Volume 8.6 fL (9.1-12.4); Platelet Count 238 K/mm3 (150-400); RDW Coefficient Variation 16.5 % (11.7-14.2); RDW Standard Deviation 54.4 fL (35.1-46.3); Red Blood Cell Count 2.59 M/mm3 (4.30-5.90); White Blood Cell Count 10.87 K/mm3 (4.00-11.30)
[2022-10-13 08:34] LABS: Bun/Creatinine Ratio 15.6 (12.0-20.0); Calcium, Blood 8.1 mg/dL (8.5-10.1); Creatinine, Blood 4.67 mg/dL (0.60-1.20); Potassium, Blood 4.3 mmol/L (3.5-5.5)
[2022-10-13 15:30] LABS: Prostate Specific Antigen 0.544 ng/mL (0.000-4.000)
[2022-10-13 15:45] VITALS: BP 104/55
--- NOTE | 2022-10-13 19:27 | NUR ---
SHIFT SUMMARY PATIENT INDEPENDENT IN ROOM. PATIENT ABLE TO EXPRESS NEEDS, ALERT AND ORIENTED. CONTINUE TO MONITOR KIDNEY FUNCTION. DR ELLISON CONSULTED AND NEW ORDERS ADDRESSED. QUIROS IN PLACE. PATIENT TO SEE UROLOGY AN OUTPATIENT.
[2022-10-13 20:24] VITALS: BP 122/54
[2022-10-14 02:17] VITALS: BP 114/57
--- NOTE | 2022-10-14 03:21 | NUR ---
PT EDUCATED ON [facility] FIRE SAFETY IGNITION/EXPOLOSIVE SOURCES NON SMOKING POLICY AND VERBALIZED UNDERSTANDING.
--- NOTE | 2022-10-14 03:26 | NUR ---
SHIFT SUMMARY NOC PT A/O X 4. PLEASANT AND COOPERATIVE WITH CARE. NO ACUTE CHANGES TO REPORT. PT HAS QUIROS IN PLACE DRAINING CLEAR URINE TO GRAVITY. PT HAS NS INFUSING @ 75 ML/HR TO IMPROVE KIDNEY FUNCTION. ON TELE RUNNING SINUS RHYTHM IN 70'S. PT DISCHARGE STILL PENDING ON IMPROVEMENT ON KIDNEY FUNCTION, WITH DR ELLISON TELLING PT ABOUT POSSIBILITY OF POSSIBLE NEPHROSTOMY PLACEMENT. PT WILL FOLLOW UP WITH UROLOGIST AFTER DISCHARGE AND WILL FOLLOW QUIROS. AWAITING AM RENAL FUNCTION, AND H/H LABS FOR IMPROVEMENT. PT IS CURRENTLY RESTING WITH BED IN LOWEST POSITION, AND CALL LIGHT WITHIN REACH.
[2022-10-14 05:34] LABS: Hematocrit 22.4 % (37.0-53.0); Hemoglobin 7.3 g/dL (13.5-17.5)
[2022-10-14 05:58] LABS: Anion Gap 8 mmol/L (6-16); Blood Urea Nitrogen 73 mg/dL (8-24); Bun/Creatinine Ratio 16.3 (12.0-20.0); CO2, Blood 21 mmol/L (21-32); Calcium, Blood 7.6 mg/dL (8.5-10.1); Chloride, Blood 112 mmol/L (98-108); Creatinine, Blood 4.47 mg/dL (0.60-1.20); Glomerular Filtration Rate 14 (60-); Glucose, Blood 98 mg/dL (70-99); Magnesium, Blood 2.1 mg/dL (1.6-2.4); Phosphorus, Blood 4.5 mg/dL (2.5-4.9); Sodium, Blood 141 mmol/L (136-145)
[2022-10-14 08:07] VITALS: BP 130/72
[2022-10-14 17:02] VITALS: BP 128/69
--- NOTE | 2022-10-14 18:47 | NUR ---
SHIFT SUMMARY PATIENT INDEPENDENT IN ROOM. DENIES ANY PAIN. CONTINUE TO MONITOR KIDNEY FUNCTION. CATHETER IN PLACE AND DRAINING. PATIENT VERBALIZING DESIRE TO GO HOME BUT UNDERSTANDS NEED TO STAY IN THE HOSPITAL AT THIS TIME. PATIENT HOPEFUL KIDNEY FUNCTION WILL IMPROVE ENOUGH TO NOT BE ON DIALYSIS.
[2022-10-14 20:55] VITALS: BP 126/67
--- NOTE | 2022-10-14 23:20 | NUR ---
HOSPITALIST WALDO TUCKER ORDERED NO IV ACCESS AND DC TELEMETRY.
[2022-10-15 03:19] VITALS: BP 112/65
--- NOTE | 2022-10-15 04:12 | NUR ---
SHIFT SUMMARY PATIENT HAD NO ACUTE CHANGES OBSERVED. AXOX 4 AND INDEPENDENT IN ROOM. NO IV ACCESS. QUIROS PATENT AND DRAINING TO GRAVITY. ON ROOM AIR. DENIES CHEST PAIN, SOB, AND N/V. VSS/AFEBRILE. SLEPT MOST OF SHIFT. CALL LIGHT IN REACH. BED IN LOWEST POSITION. WILL CONTINUE TO MONITOR UNTIL DAY SHIFT NURSE ASSUMES CARE.
[2022-10-15 05:17] LABS: Hematocrit 25.6 % (37.0-53.0); Hemoglobin 8.3 g/dL (13.5-17.5)
[2022-10-15 06:33] LABS: Albumin, Blood 2.3 g/dL (3.4-5.0); Anion Gap 6 mmol/L (6-16); Blood Urea Nitrogen 72 mg/dL (8-24); Bun/Creatinine Ratio 16.6 (12.0-20.0); CO2, Blood 23 mmol/L (21-32); Calcium, Blood 8.3 mg/dL (8.5-10.1); Chloride, Blood 109 mmol/L (98-108); Creatinine, Blood 4.33 mg/dL (0.60-1.20); Glomerular Filtration Rate 14 (60-); Glucose, Blood 106 mg/dL (70-99); Magnesium, Blood 2.3 mg/dL (1.6-2.4); Phosphorus, Blood 5.1 mg/dL (2.5-4.9); Potassium, Blood 4.6 mmol/L (3.5-5.5); Sodium, Blood 138 mmol/L (136-145)
[2022-10-15 07:54] VITALS: BP 147/76
[2022-10-15] MEDS ORDERED: VISBIOME 112.51 EACH PO (10:55)
[2022-10-15] MEDS ORDERED: ELIQUIS5 M2 PO (10:55)
[2022-10-15] MEDS ORDERED: DOXY100 PO (10:56)
--- NOTE | 2022-10-15 13:52 | NUR ---
PT AWAKE WATCHING TV DURING SHIFT REPORT. NO C/O. HEMATURIA RESOLVED. PT TO D/C TO HOME WITH QUIROS CATH IN PLACE. PT TO SEE DR ELLISON ON ; APPOINTMENT SCHEDULED PER DR ELLISON. PT TO D/C ON [facility] NOW; D/C INSTRUCTIONS REVIEWED WITH PT. DR LOVE IN TO SEE PT AND DISCUSS PLAN OF CARE. PT VERBALIZED UNDERSTANDING. MEDS FAXED TO [facility] PER PT REQUEST. PT TO CONTINUE PO ABX PER D/C ORDERS. PT ASSISTED OUT TO SON'S TRUCK VIA W/C. BELONINGS IN HAND. LEG BAG PROVIDED PER PT REQUEST.
== END 2022-10-15 13:18 | disposition home or self-care (01) | DRG 682 ==
LOC: ER 10:50 → MEDS 14:28
PROVIDERS: Emergency Medicine; Internal Medicine Nephrology; ADMIT Internal Medicine
PROC: 0T9B70Z Drainage of Bladder with Drainage Device, Via Natural or Artificial Opening (ICD-10-PCS; principal; 2022-10-12)
PROC: 30233N1 Transfusion of Nonautologous Red Blood Cells into Peripheral Vein, Percutaneous Approach (ICD-10-PCS; 2022-10-12)
DX: N17.9 Acute kidney failure, unspecified (principal); I50.23 Acute on chronic systolic (congestive) heart failure; I48.20 Chronic atrial fibrillation, unspecified; I13.0 Hypertensive heart and chronic kidney disease with heart failure and stage 1 through stage 4 chronic kidney disease, or unspecified chronic kidney disease; I42.7 Cardiomyopathy due to drug and external agent; E87.1 Hypo-osmolality and hyponatremia; N13.6 Pyonephrosis; R31.0 Gross hematuria; E87.6 Hypokalemia; N13.9 Obstructive and reflux uropathy, unspecified; I48.0 Paroxysmal atrial fibrillation; B96.89 Other specified bacterial agents as the cause of diseases classified elsewhere; N18.4 Chronic kidney disease, stage 4 (severe); D63.1 Anemia in chronic kidney disease; E86.9 Volume depletion, unspecified; N25.81 Secondary hyperparathyroidism of renal origin; F15.10 Other stimulant abuse, uncomplicated; F17.210 Nicotine dependence, cigarettes, uncomplicated; F10.21 Alcohol dependence, in remission; Z88.0 Allergy status to penicillin; Z79.01 Long term (current) use of anticoagulants; Z79.891 Long term (current) use of opiate analgesic; Z79.899 Other long term (current) drug therapy; Z87.81 Personal history of (healed) traumatic fracture; Z98.890 Other specified postprocedural states
CPT/HCPCS: 36415; 36416; 36430; 51702; 51798; 74176; 80048; 80053; 80069; 81001; 83735; 85014; 85018; 85025; 85027; 85610; 85730; 86850; 86900; 86901; 86923; 87077; 87086; 87186; 93005; 93010; 96365-59; 96367-59; 99285-25; A9270; G0103; J0696; J0881; J3430; J7030; J7040; P9016

== ENCOUNTER → 2022-10-25 | Outpatient (CLI) | payer MEDICARE ==
[~2022-10-25] MED LIST changes: +DOXY100 PO; +ELIQUIS5 M2 PO; +FINA5 PO; +TADA10TA PO; +VISBIOME 112.51 EACH PO
[2022-10-25 19:51] LABS: BASOPHILS ABSOLUTE AUTO 0.04 K/mm3 (0.00-0.23); BASOPHILS PERCENT AUTO 1 % (0-2); EOSINOPHILS ABSOLUTE AUTO 0.47 K/mm3 (0.00-0.68); EOSINOPHILS PERCENT AUTO 8 % (0-6); Hematocrit 29.4 % (37.0-53.0); Hemoglobin 9.1 g/dL (13.5-17.5); IMMATURE GRAN ABSOLUTE AUTO 0.01 K/mm3 (0.00-0.10); IMMATURE GRAN PERCENT AUTO 0 % (0-1); LYMPHOCYTES ABSOLUTE AUTO 1.22 K/mm3 (0.84-5.20); LYMPHOCYTES PERCENT AUTO 21 % (21-46); MONOCYTES ABSOLUTE AUTO 0.63 K/mm3 (0.16-1.47); MONOCYTES PERCENT AUTO 11 % (4-13); Mean Corpuscular HGB 29.7 pg (26.0-34.0); Mean Corpuscular Volume 96 fL (80-100); Mean Platelet Volume 8.4 fL (9.1-12.4); NEUTROPHILS ABSOLUTE AUTO 3.48 K/mm3 (1.96-9.15); NEUTROPHILS PERCENT AUTO 59 % (41-73); Platelet Count 308 K/mm3 (150-400); RDW Coefficient Variation 15.9 % (11.7-14.2); RDW Standard Deviation 55.1 fL (35.1-46.3); Red Blood Cell Count 3.06 M/mm3 (4.30-5.90); White Blood Cell Count 5.85 K/mm3 (4.00-11.30)
[2022-10-25 19:57] LABS: Albumin, Blood 3.1 g/dL (3.4-5.0); Anion Gap 9 mmol/L (6-16); Blood Urea Nitrogen 59 mg/dL (8-24); CO2, Blood 23 mmol/L (21-32); Calcium, Blood 8.4 mg/dL (8.5-10.1); Chloride, Blood 106 mmol/L (98-108); Creatinine, Blood 4.21 mg/dL (0.60-1.20); Glomerular Filtration Rate 15 (60-); Glucose, Blood 104 mg/dL (70-99); Phosphorus, Blood 5.9 mg/dL (2.5-4.9); Potassium, Blood 4.1 mmol/L (3.5-5.5); Sodium, Blood 138 mmol/L (136-145)
== END | disposition home or self-care (01) ==
LOC: LAB 16:58 → LAB SHORT 16:58
PROVIDERS: Student in an Organized Health Care Education/Training Program
DX: N18.4 Chronic kidney disease, stage 4 (severe) (principal); D64.9 Anemia, unspecified
CPT/HCPCS: 80069; 85025

== ENCOUNTER → 2022-11-23 | Outpatient (CLI) | payer MEDICARE | END | disposition home or self-care (01) | LOC: LAB SHORT 13:11 → LAB 13:11 | DX: N39.0 Urinary tract infection, site not specified (principal) | CPT/HCPCS: 87077; 87086; 87186 ==

== ENCOUNTER 2024-04-05 06:58 | Day surgery (SDC) | payer MEDICARE ==
[~2024-04-05] VITALS: Ht 170.2 cm; Wt 65.8 kg
[2024-04-05] MEDS ORDERED: CEPH500 PO (07:06)
[2024-04-05] MEDS ORDERED: SODBIC650 PO (07:07)
[2024-04-05] MEDS ORDERED: TORSE20 PO (07:08)
[2024-04-05 07:37] VITALS: BP 141/85
[2024-04-05 07:39] VITALS: BP 141/85
[2024-04-05] MEDS ORDERED: Heparin Sodium 1000 Units/ML 10ML MDV ONE (07:41)
[2024-04-05] MEDS ORDERED: NS 250 ML IV ONE (07:41)
--- NOTE | 2024-04-05 07:44 | NUR ---
PT'S FRIEND IN ROOM. CALL LIGHT IN REACH.
[2024-04-05] MEDS ORDERED: NS 500 ML IV ONE (08:54)
[2024-04-05] MEDS ORDERED: Midazolam HCl 1MG / ML 2ML Vial ONE (08:54)
[2024-04-05] MEDS ORDERED: FentaNYL Citrate 50 MCG/ML 2 ML Injection ONE (08:54)
[2024-04-05] MEDS ORDERED: Heparin Sodium 10,000 Units/ML 1ML MDV ONE (09:11)
[2024-04-05 09:35] VITALS: BP 116/86
--- NOTE | 2024-04-05 09:45 | NUR ---
PT VERBALIZED UNDERSTANDING OF WRITTEN AND VERBAL D/C INST. R UPPER CHEST DRSG CDI, NO SWELLING OR BLEEDING. PT WILL BE TAKEN OUT OF THE HRT [facility]ENTER VIA W/C. IV REMOVED.
[2024-04-05 10:33] VITALS: BP 107/61
--- NOTE | 2024-04-05 10:38 | NUR ---
[facility] SITE BLEED. TENZIN Santos RN HELD PRESSURE TO OBTAIN HEMOSTASIS 30 MIN AGO. [facility] SITE REDRESSED AND NO REBLEED NOTED AT THIS TIME. PT SITTING UP IN RECLINER DRINKING COFFEE AND TALKING WITH A FRIEND IN ROOM. CALL LIGHT IN REACH.
[2024-04-05 10:45] VITALS: BP 105/62
--- NOTE | 2024-04-05 10:52 | NUR ---
SLIGHT OOZING NOTED AT [facility] SITE. DR VILLALPANDO NOTIFIED.
--- NOTE | 2024-04-05 11:15 | NUR ---
SLIGHT OOZING STILL NOTED AT [facility] SITE; WILL CONTINUE TO MONITOR.
--- NOTE | 2024-04-05 12:37 | NUR ---
DR VILLALPANDO WAS IN TO SEE PT'S [facility] SITE. SEE NEW ORDERS. DISCHARGE INSTURCITONS REVIEWED ALL QUESTIONS ANSWERED. 20 G IV DISCONTINED FROM RIGHT AC SITE WITH INTACT CANNULA. PT ESCORTED OUT VIA WHEELCHAIR ESCROT.
== END 2024-04-05 12:40 | disposition home or self-care (01) ==
LOC: MHTC 06:58
DX: N18.6 End stage renal disease (principal); I50.22 Chronic systolic (congestive) heart failure; I48.0 Paroxysmal atrial fibrillation; F17.210 Nicotine dependence, cigarettes, uncomplicated; Z79.899 Other long term (current) drug therapy; Z79.01 Long term (current) use of anticoagulants
CPT/HCPCS: 36558; 76937; 99152; C1750; C1769; C1894; J1644; J2250; J3010; J7040; J7050

== ENCOUNTER 2024-08-14 05:47 | Day surgery (SDC) | payer MEDICARE ==
[~2024-08-14] VITALS: Ht 170.2 cm; Wt 71.0 kg
[2024-08-14] VITALS (7 sets, daily range): BP systolic 101–123; BP diastolic 63–79
[~2024-08-14 05:47] MED LIST changes: +CEPH500 PO; +SODBIC650 PO; +TORSE20 PO
[2024-08-14] MEDS ORDERED: Heparin Sodium 1000 Units/ML 10ML MDV ONE ×2 (06:40→06:50)
[2024-08-14] MEDS ORDERED: NS 500 ML IV ONE ×2 (06:40→06:50)
[2024-08-14] MEDS ORDERED: Verapamil HCL 2.5 MG/ML 2ML Injection ONE (06:40)
[2024-08-14] MEDS ORDERED: Nitroglycerin 2 MG/20 ML BTL ONE (06:41)
[2024-08-14] MEDS ORDERED: Lidocaine HCl 2% 20 ML MDV ONE ×2 (07:02→07:30)
[2024-08-14] MEDS ORDERED: NS 1,000 ML IV ONE (07:03)
[2024-08-14] MEDS ORDERED: Midazolam HCl 1MG / ML 2ML Vial ONE (07:03)
[2024-08-14] MEDS ORDERED: FentaNYL Citrate 50 MCG/ML 2 ML Injection ONE (07:03)
[2024-08-14] MEDS ORDERED: Phenylephrine HCl 100 MCG/ML-NS 10MLSYR (1MG/10ML) ONE (07:49)
--- NOTE | 2024-08-14 08:21 | NUR ---
pt back to recovery from lab. pt a&o. site soft. no bleeding/hematoma noted.
--- NOTE | 2024-08-14 08:40 | NUR ---
PT GIVEN LUNCH TRAY AND COFFEE.
--- NOTE | 2024-08-14 09:36 | NUR ---
THRILL PALPABLE. SITE SOFT. NO BLEEDING/HEMATOMA NOTED.
--- NOTE | 2024-08-14 10:04 | NUR ---
PT GIVEN DC INSTRUCTIONS AND VERBALIZED UNDERSTANDING. IV OUT. PT CHNAGED. SITE SOFT. NO BLEEDING/HEMATOMA NOTED. THRILL PALPABLE. PTT AKEN TO LBY VIA WC. GAYLE TO TAKE PT HOME.
== END 2024-08-14 10:00 | disposition home or self-care (01) ==
LOC: MHTC 05:47
DX: N18.6 End stage renal disease (principal); I50.22 Chronic systolic (congestive) heart failure; I48.0 Paroxysmal atrial fibrillation; F17.210 Nicotine dependence, cigarettes, uncomplicated; Z79.899 Other long term (current) drug therapy; Z88.0 Allergy status to penicillin
CPT/HCPCS: 36836; 64415; 76937; 99152; 99153; C1725; C1769; C1889; C1894; J1644; J2250; J2371; J3010; J7030; J7040

== ENCOUNTER 2024-09-25 06:48 | Day surgery (SDC) | payer MEDICARE ==
[2024-09-25] VITALS (7 sets, daily range): BP systolic 103–148; BP diastolic 60–95
[~2024-09-25] VITALS: Ht 170.2 cm; Wt 72.3 kg
[2024-09-25] MEDS ORDERED: Heparin Sodium 1000 Units/ML 10ML MDV ONE ×2 (07:18→08:47)
[2024-09-25] MEDS ORDERED: Verapamil HCL 2.5 MG/ML 2ML Injection ONE (07:18)
[2024-09-25] MEDS ORDERED: NS 1,000 ML IV ONE ×2 (07:18→08:35)
[2024-09-25] MEDS ORDERED: Nitroglycerin 2 MG/20 ML BTL ONE (07:19)
[2024-09-25] MEDS ORDERED: Midazolam HCl 1MG / ML 2ML Vial ONE (08:47)
[2024-09-25] MEDS ORDERED: FentaNYL Citrate 50 MCG/ML 2 ML Injection ONE (08:49)
[2024-09-25] MEDS ORDERED: Phenylephrine HCl 100 MCG/ML-NS 10MLSYR (1MG/10ML) ONE (09:09)
[2024-09-25] MEDS ORDERED: CeFAZolin Sodium 2,000 MG VIAL ONE (09:48)
[2024-09-25] MEDS ORDERED: NS 100 ML IV ONE (09:49)
[2024-09-25] MEDS ORDERED: NS 0 ML IV ONE (09:49)
[2024-09-25] MEDS ORDERED: Vancomycin HCl 1000 MG ADDvantage ONE (09:51)
--- NOTE | 2024-09-25 10:00 | NUR ---
PT ARRIVES BACK TO RECOVERY ROOM, UP IN RECLINER. VSS AT THIS TIME. BANDAGE OVER BANDING SITE VERY SMALL OOZE TO BANDAGE, SITE REVIEWED WITH LACEY AND RN. PT. HAS TR BAND IN PLACE TO LEFT RADIAL, SITE WNL, NO OOZING OR SWELLING AT SITE. 7CC OF AIR IN BAND. ANTIBIOTICS INFUSING PER ORDER. PT. PROVIDED WITH BREAKFAST TRAY AND COFFEE PER REQUEST. PT FRIEND AT BEDSIDE.
--- NOTE | 2024-09-25 11:17 | NUR ---
TR BAND DELFATED AT THIS TIME PER PROTOCOL. ADDITOINAL COFFEE PROVIDED. SITE REMAINS WNL.
--- NOTE | 2024-09-25 11:39 | NUR ---
antibiotic completed. Tr band remains deflated and in place. no changes to dressing on left upper arm.
--- NOTE | 2024-09-25 11:50 | NUR ---
S/P TR band deflated for 1 hr it was removed with cloth dot placed. pt. up to get dressed and started to having oozing from tr site. manual pressure held for 10 min and hemostasis achieved. no further oozing or swelling to site. pt. reports tenderness to ALEKSANDRA site remains unchanged from intital assessment, minimal swelling site soft, and tender, no further ooze on dressing. New dressing applied to TR band area and arm board placed. IV removed, catheter intact. PT. vss.
--- NOTE | 2024-09-25 12:15 | NUR ---
Pt dressed and site reassesed and remains unchanged. taken via wheelchair to exit. pt friend to drive pt home. NADN upon discharge, instructions reviewed in detail along with follow up appointment.
[2024-09-26] MEDS ORDERED: HYDR1TAB94 PO (16:39)
== END 2024-09-25 12:15 | disposition home or self-care (01) ==
LOC: MHTC 06:48
DX: T82.898A Other specified complication of vascular prosthetic devices, implants and grafts, initial encounter (principal); N18.6 End stage renal disease; I50.22 Chronic systolic (congestive) heart failure; I48.0 Paroxysmal atrial fibrillation; F17.210 Nicotine dependence, cigarettes, uncomplicated; Z88.0 Allergy status to penicillin; Z79.01 Long term (current) use of anticoagulants; Z79.899 Other long term (current) drug therapy
CPT/HCPCS: 36902; 37607; 76937; 93005; 93010; 99152; 99153; C1725; C1769; C1887; C1894; J0690; J1644; J2250; J2371; J3010; J3373; J7030; Q9967

== ENCOUNTER 2024-09-26 11:44 | Emergency (ER) | payer MEDICARE ==
[~2024-09-26] VITALS: Ht 170.2 cm; Wt 72.6 kg
[2024-09-26] MEDS ORDERED: HYDROcodone 10-APAP 325 TAB PO ONE (14:05)
[2024-09-26 16:31] VITALS: BP 154/77
[2024-09-26] MEDS ORDERED: HYDR1TAB94 PO (16:39)
== END 2024-09-26 16:45 | disposition home or self-care (01) ==
LOC: ER 11:44
DX: T82.848A Pain due to vascular prosthetic devices, implants and grafts, initial encounter (principal); Z88.0 Allergy status to penicillin; Z79.01 Long term (current) use of anticoagulants; Z79.899 Other long term (current) drug therapy; I48.91 Unspecified atrial fibrillation; N18.30 Chronic kidney disease, stage 3 unspecified; F17.210 Nicotine dependence, cigarettes, uncomplicated
CPT/HCPCS: 93971; 99283-25; A9270